=== PATIENT | male | born 1970 | race Caucasian/White ===

== ENCOUNTER → 2018-01-21 14:25 | Outpatient (CLI) | payer MEDICARE, SELFPAY ==
[2018-01-21 15:45] LABS: AST(SGOT) 30 U/L (15-37); Alanine Aminotransfer ALT/SGPT 34 U/L (16-61); Alkaline Phosphatase 36 U/L (45-117); Bilirubin, Direct 0.12 mg/dL (0.00-0.30); Cholesterol 203 mg/dL (200); Globulin 3.8 g/dL (2.2-4.2); High Density Lipoprotein 45 mg/dL; Protein, Total 7.8 g/dL (6.4-8.2); Triglycerides 150 mg/dL; Very Low Density Lipoprotein 30 mg/dL (5-40)
== END ==
PROVIDERS: Family Provider Family Medicine; PCP Family Medicine; Visit Provider Internal Medicine Cardiovascular Disease
DX: E78.5 Hyperlipidemia, unspecified (principal)
CPT/HCPCS: 36415; 80061; 80076

== ENCOUNTER → 2018-01-24 11:02 | Outpatient (CLI) | payer MEDICARE, SELFPAY ==
--- NOTE | 2018-01-24 11:03 | ECHOD_ITS ---
Reason For Study: Congenital heart disease Procedure This was a 2D Doppler, Color Flow transthoracic echocardiogram. Exam performed in department. Left Ventricle Normal LV size. Left ventricular systolic function is normal. The estimated ejection fraction is 60 %. Transmitral doppler flow suggestive of impaired relaxation of left ventricle. No regional wall motion abnormalities noted. Right Ventricle Normal RV size. Normal systolic function. Atria Normal left atrium. Normal right atrium. No doppler evidence for ASD. Mitral Valve There is no mitral annular calcification. Normal mitral valve. Trivial mitral valve insufficiency. Tricuspid Valve Normal tricuspid valve. Trivial tricuspid valve insufficiency. Aortic Valve Bicuspid aortic valve. Mild diffuse aortic valve thickening. Mild (1+) eccentric aortic valve insufficiency. Pulmonic Valve The pulmonic valve is not well visualized. Great Vessels Normal sized aortic root. Pericardium/Pleural No pericardial effusion. MMode/2D Measurements & Calculations LVIDd: 4.4 cm IVSd: 1.2 cm LVOT diam: 2.2 cm LVIDs: 2.9 cm LVPWd: 1.2 cm LVOT area: 3.8 cm2 RVDd: 3.7 cm FS: 34.0 % Ao root diam: 3.7 cm LAV(MOD-bp): 37.3 ml LA A4 area: 13.2 cm2 LAV(MOD-bp) Indexed: 18.1 ml/m2 LAV(MOD-sp2): 44.2 ml LAV(MOD-sp4): 30.5 ml RA A4 area: 8.7 cm2 Doppler Measurements & Calculations MV E max jerry: 81.9 cm/sec Lat Peak E' Jerry: 10.8 cm/sec Med Peak E' Jerry: 9.0 cm/sec MV A max jerry: 98.5 cm/sec E/E' lat: 7.6 E/E' med: 9.1 MV E/A: 0.83 Ao V2 max: 167.4 cm/sec LV V1 max: 108.7 cm/sec PA V2 max: 121.3 cm/sec Ao max P.2 mmHg LV V1 max P.7 mmHg JONATAN(V,D): 2.5 cm2 Interpretation Summary Left ventricular systolic function is normal. The estimated ejection fraction is 60 %. Trivial mitral valve insufficiency. Trivial tricuspid valve insufficiency. Bicuspid aortic valve. Mild diffuse aortic valve thickening. Mild (1+) eccentric aortic valve insufficiency. Transmitral doppler flow suggestive of impaired relaxation of left ventricle Comment / Disclaimer: The offiial transthoracic echocardiogram report was delayed secondary to [facility] Information Systems technical issues. A hand writtern preliminary report was previously made available for review. Ordering Physician: Cj Castellanos Referring Physician: Vishnu Owen MD Performed By: Macie Boston RDCS
== END ==
PROVIDERS: Family Provider Family Medicine; PCP Family Medicine; Visit Provider Internal Medicine Cardiovascular Disease
DX: R07.9 Chest pain, unspecified (principal); I35.1 Nonrheumatic aortic (valve) insufficiency; Q23.1 Congenital insufficiency of aortic valve
CPT/HCPCS: 93306

== ENCOUNTER → 2018-02-04 07:35 | Outpatient (CLI) | payer MEDICARE, SELFPAY ==
--- NOTE | 2018-02-04 16:31 | STRESSREP ---
Stress Test Report Date: 02/04/2018 Procedure: Exercise tolerance test/imaging study Indications: Chest pain Consent: Per the patient Procedure: The patient exercised on a Charles protocol for 9 minutes completing Stage III achieving a peak heart rate of 157 bpm (90 % predicted maximal heart rate) with a peak blood pressure 178/66 mmHg and a peak MET capacity of 10 METs. The baseline ECG demonstrated normal sinus rhythm. The peak exercise ECG demonstrated somatic/motion artifact with no obvious ECG changes. There was a rare PVC during exercise and recovery. The functional capacity was considered good. There was no complaint of chest discomfort during exercise or recovery. The examination was discontinued secondary to dyspnea. Impression: 1. Technically adequate (percent predicted maximal heart rate greater than 85%) exercise tolerance test 2. Peak exercise ECG demonstrated somatic/motion artifact with no obvious ECG changes 3. There was a rare PVC during exercise and recovery. 4. Nuclear images pending Myocardial perfusion imaging study: Technique: The patient was injected with 11.1 mCi of technetium 99m Cardiolite and subsequently rest SPECT Cardiolite nuclear imaging was obtained in the horizontal long, vertical long, and short axis views. The patient exercised on a Charles protocol for 9 minutes completing Stage III achieving a peak heart rate of 157 bpm (90 % predicted maximal heart rate) with a peak blood pressure 178/66 mmHg and a peak MET capacity of 10 METs. The patient was injected with 32.8 mCi of technetium 99m Cardiolite and subsequently stress SPECT Cardiolite nuclear imaging was obtained in the horizontal long, vertical long, and short axis views. A gated Cardiolite study at peak stress was obtained. Interpretation: Rest and stress SPECT Cardiolite nuclear imaging status post realignment, normalization, and attenuation correction, demonstrates the appearance of relative uniform tracer uptake and myocardial perfusion appearing within normal limits. There is end systolic thickening and brightening. The gated Cardiolite study demonstrates myocardial thickening and inward wall motion. The reported LVEF is 58 %. Impression: 1. Rest and stress SPECT Cardiolite nuclear imaging demonstrate relative uniform tracer uptake and myocardial perfusion appearing within normal limits. 2. The gated Cardiolite study reports an LVEF of 58 %. This note was generated with [employer]ation software. It may contain incorrect words, spelling, and punctuation that were not noted in checking the note before signing.
--- NOTE | 2018-02-04 16:37 | STRESSREP_ITS ---
Stress Test Report Date: 02/04/2018 Procedure: Exercise tolerance test/imaging study Indications: Chest pain Consent: Per the patient Procedure: The patient exercised on a Charles protocol for 9 minutes completing Stage III achieving a peak heart rate of 157 bpm (90 % predicted maximal heart rate) with a peak blood pressure 178/66 mmHg and a peak MET capacity of 10 METs. The baseline ECG demonstrated normal sinus rhythm. The peak exercise ECG demonstrated somatic/motion artifact with no obvious ECG changes. There was a rare PVC during exercise and recovery. The functional capacity was considered good. There was no complaint of chest discomfort during exercise or recovery. The examination was discontinued secondary to dyspnea. Impression: 1. Technically adequate (percent predicted maximal heart rate greater than 85% ) exercise tolerance test 2. Peak exercise ECG demonstrated somatic/motion artifact with no obvious ECG changes 3. There was a rare PVC during exercise and recovery. 4. Nuclear images pending Myocardial perfusion imaging study: Technique: The patient was injected with 11.1 mCi of technetium 99m Cardiolite and subsequently rest SPECT Cardiolite nuclear imaging was obtained in the horizontal long, vertical long, and short axis views. The patient exercised on a Charles protocol for 9 minutes completing Stage III achieving a peak heart rate of 157 bpm (90 % predicted maximal heart rate) with a peak blood pressure 178/ 66 mmHg and a peak MET capacity of 10 METs. The patient was injected with 32.8 mCi of technetium 99m Cardiolite and subsequently stress SPECT Cardiolite nuclear imaging was obtained in the horizontal long, vertical long, and short axis views. A gated Cardiolite study at peak stress was obtained. Interpretation: Rest and stress SPECT Cardiolite nuclear imaging status post realignment, normalization, and attenuation correction, demonstrates the appearance of relative uniform tracer uptake and myocardial perfusion appearing within normal limits. There is end systolic thickening and brightening. The gated Cardiolite study demonstrates myocardial thickening and inward wall motion. The reported LVEF is 58 %. Impression: 1. Rest and stress SPECT Cardiolite nuclear imaging demonstrate relative uniform tracer uptake and myocardial perfusion appearing within normal limits. 2. The gated Cardiolite study reports an LVEF of 58 %. This note was generated with [employer] software. It may contain incorrect words, spelling, and punctuation that were not noted in checking the note before signing.
== END ==
PROVIDERS: Family Provider Family Medicine; PCP Family Medicine; Visit Provider Internal Medicine Cardiovascular Disease
DX: R07.9 Chest pain, unspecified (principal)
CPT/HCPCS: 78452; 93017; A9500; A4216

== ENCOUNTER → 2018-03-31 07:22 | Outpatient (CLI) | payer MEDICARE, SELFPAY ==
--- NOTE | 2018-03-31 07:24 | MRI_ITS ---
STUDY: MRI LEFT KNEE REASON FOR EXAM: Medial pain for one year TECHNIQUE: Standardized fat and water weighted pulse sequences were obtained in all 3 orthogonal planes. COMPARISON: Radiographs 05/06/2017. FINDINGS: There is a complex tear of the posterior horn/posterior body of the medial meniscus (proton-density sagittal images 6-14; proton density coronal images 12-14). There is mild arthrosis of the medial femorotibial compartment with mild partial-thickness chondral loss (T2 sagittal image 7). There is subchondral bone edema of the medial tibial plateau (T2 coronal images 9-17), a stress phenomenon. Normal medial collateral ligamentous complex (MCL). Normal distal semimembranosus, gracilis and semitendinosus tendons. Normal lateral meniscus. Normal hyaline cartilage of the lateral femorotibial compartment. There is avascular necrosis of the anterior nonweightbearing aspect of the lateral femoral condyle (T2 coronal images 19-22). Normal proximal tibiofibular articulation. Normal lateral collateral (fibular) ligament. Normal popliteus tendon. Normal biceps femoris tendon. Normal anterior cruciate ligament (ACL). Normal posterior cruciate ligament (PCL). Normal congruent patellofemoral articulation. Normal hyaline cartilage of the patellofemoral compartment. Normal medial and lateral patellar retinaculum. Normal quadriceps tendon. Normal patellar tendon. Normal Hoffa's fat pad. There is a minimal volume of fluid in the knee joint. There is extravasated fluid from a small ruptured popliteal cyst (T2 sagittal images 5-12). There is mild edema in the anterior subcutis adipose space. The otherwise visualized osseous structures are unremarkable. MRI/Lower Ext Joint Only (Routine) IMPRESSION: Medial meniscal tear. Subchondral bone edema of the medial tibial plateau, a stress phenomenon. Mild arthrosis of the medial femorotibial compartment. 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 Extravasated fluid from a small ruptured popliteal cyst. Electronically Signed: Tal Snider MD at 10:00 EDT Tel , Service support ,
== END ==
PROVIDERS: Family Provider Family Medicine; PCP Family Medicine; Visit Provider Orthopaedic Surgery
DX: M23.204 Derangement of unspecified medial meniscus due to old tear or injury, left knee (principal)
CPT/HCPCS: 73721

== ENCOUNTER → 2018-04-21 13:29 | Outpatient (CLI) | payer MEDICARE, SELFPAY ==
[2018-04-21 15:38] LABS: AST(SGOT) 31 U/L (15-37); Alanine Aminotransfer ALT/SGPT 36 U/L (16-61); Albumin, Serum 3.9 g/dL (3.2-5.0); Alkaline Phosphatase 40 U/L (45-117); Bilirubin, Direct 0.15 mg/dL (0.00-0.30); Cholesterol 188 mg/dL (200); Globulin 3.6 g/dL (2.2-4.2); High Density Lipoprotein 39 mg/dL; Protein, Total 7.5 g/dL (6.4-8.2); Triglycerides 210 mg/dL; Very Low Density Lipoprotein 42 mg/dL (5-40)
== END ==
PROVIDERS: Family Provider Family Medicine; PCP Family Medicine; Visit Provider Internal Medicine Cardiovascular Disease
DX: E78.5 Hyperlipidemia, unspecified (principal)
CPT/HCPCS: 36415; 80061; 80076

== ENCOUNTER → 2018-06-10 10:44 | Outpatient (CLI) | payer MEDICARE, SELFPAY ==
--- NOTE | 2018-05-14 11:31 | SUR.PREOP ---
Addendum entered by Yanet Pena 05/14/18 11:50: 1145 Pt left hospital prior to speaking with psychiatric social worker. Pt demographic info given to social work professor. Original Note: Upon entrance to pt room. Pt rocking on side of bed. appears anxious. Pt reported he has not take any of his med since 05/08/18. Pt stated, I figured what's the point. Upon further assessment pt reports he is living in a hotel because his parents asked him to leave home. He has no one to drive him home today. He plans to take a cab. Dr. Apple notified. She spoke with pt. Pt refused for his parents to be telephoned. Notified psychiatric social worker due to pt's current living situation and his symptoms of depression. career services director to come speak with pt. Pt. surgery cancelled.
--- NOTE | 2018-05-14 12:27 | CM.ED ---
Social Work Note Referral from Copywriter for concerns of mental health/ SI. SW went down to and pt had left. Per nursing the pt was stating that he had stopped taking his medications because he didn't know what the point was anymore. Pt did not state plan to harm self or end his life, but this was also not evaluated. Placed call to [facility] and spoke with Loyda Donald and explain that per nursing staff the pt is staying at a hotel, but they do not know which one. His parents had gone to the doctor's office 05/13 to see if he had been in because they had not seen or heard from him. Loyda is looking into if they have had any recent contact with the pt, but recommend that SW file a report with the PD. Placed call to Shanita NAYAK at [phone]. Filed initial report and officer taking call inquired about what pt was wearing or any belongings he had with him. Inform this SW did not see him and would have nursing staff call. He requests as soon as possible for them to dispatch officers. Inform that pt is in a hotel, but we do not know which one or have any contact information for him. Relayed information to nursing staff who will call in to provide description. Plan: Shanita NAYAK safety check. Gwen Cottrell, [employer] STARCH SUPERVISOR, [employer]
== END ==
PROVIDERS: Family Provider Family Medicine; PCP Family Medicine; Visit Provider Orthopaedic Surgery
PROC: (CPT 29870; principal; 2018-05-14 11:55)
DX: Z53.9 Procedure and treatment not carried out, unspecified reason (principal)
CPT/HCPCS: J7120

== ENCOUNTER 2018-07-23 11:08 | Day surgery (SDC) | payer MEDICARE, SELFPAY ==
[2018-07-23] VITALS (7 sets, daily range): BP systolic 125–146; BP diastolic 69–85; PULSE 87–107; RESP 16–18; TEMP 36.2–36.8; O2SAT 92–99; BMI 27.1
[2018-07-23 11:41] LABS: Hematocrit 39.7 % (40-54); Hemoglobin 13.7 g/dl (13.0-16.5); Mean Corp Hgb Conc 34.5 g/gl (32-36); Mean Corpuscular Hgb 30.9 pg (27.0-32.0); Mean Corpuscular Volume 89.6 fL (80-94); Mean Platelet Vol. 9.8 fl (6.2-12.0); Platelet Count 311 K/mm3 (150-450); RBC Distribution Width CV 12.7 % (11.6-14.6); RBC Distribution Width SD 41.1 fl (35.1-43.9); Red Blood Count 4.43 M/mm3 (4.6-6.2); White Blood Count 7.5 K/mm3 (4.4-11.0)
[2018-07-23 11:42] LABS: Partial Thromboplast Time 24.1 Seconds (24.1-36.2)
[2018-07-23 11:45] LABS: Scan Indicated on CBC? Y/N NO
[2018-07-23 11:59] LABS: AST(SGOT) 30 U/L (15-37); Alanine Aminotransfer ALT/SGPT 35 U/L (16-61); Albumin, Serum 4.3 g/dL (3.2-5.0); Alkaline Phosphatase 40 U/L (45-117); Anion Gap 9 (5-15); BUN 23 mg/dL (7-18); BUN/Creat Ratio 17.6 RATIO (10-20); Bilirubin, Direct 0.19 mg/dL (0.00-0.30); Calcium,Total 9.5 mg/dL (8.5-10.1); Chloride 109 mmol/L (98-107); Creatinine, Serum 1.31 mg/dL (0.70-1.30); EST Glomerular Filtration Rate 62 mL/min (>60); Est Glom Filt Rate - Afr Amer 75 mL/min (>60); Estimated Creatinine Clearance 69.71 ml/min; Globulin 3.8 g/dL (2.2-4.2); Glucose 102 mg/dL (74-106); Potassium 3.9 mmol/L (3.5-5.1); Protein, Total 8.1 g/dL (6.4-8.2); Sodium Level 139 mmol/L (136-145)
[2018-07-23] MEDS: Cefazolin 2 GM in 0.9% Normal Saline 100 ML IV (14:41)
--- NOTE | 2018-07-23 15:10 | RAD_ITS ---
STUDY: X-RAY - LEFT KNEE REASON FOR EXAM: Male, 47 years old. Arthroscopy TECHNIQUE: Single view(s) of the knee. COMPARISON: None. FINDINGS: Single image was submitted, as radiology support for c-arm imaging in the operating room. This is not a diagnostic examination. Images for documentation purposes only. Fluoroscopy time if reported: RAD/Knee 1 or 2 Views IMPRESSION: Intraoperative fluoroscopic image guidance. Electronically Signed: Vivian Camacho MD at 3:44 EST , Service support ,
--- NOTE | 2018-07-23 15:43 | PCM.DC.ORTHO ---
Discharge Diet: No Restrictions - nwb left leg for 2 weeks, follow up in 2 weeks, change dressing in 5 days and apply bandaids to incision sites, may bend knee 0-90 degrees, call with concerns Discharge Activity: May Not Drive May shower in (days): 1 Ice area for (Minutes): 20 - Every hour while awake. Weight Bearing Status: Weight bearing as tolerated Keep extremity elevated above heart level: Operative Extremity Call your doctor if your incision/area has: Continuous Slow Oozing, Sudden Increased Bleeding, Increased Pain/ Swelling, Increased Redness, Foul Smelling Discharge Call your doctor if you observe: Fever of 101 or Higher, Coldness, Increased Pain, Numbness or Tingling, Change in Color, Calf discomfort Allergies/Adverse Reactions: Allergies carbamazepine Allergy (Severe, Verified 07/15/18 08:58) Rash lithium [[place]] Allergy (Verified 07/15/18 08:58) Other metoclopramide HCl [From Reglan] Allergy (Verified 07/15/18 08:58) Other metoclopramide Adverse Reaction (Severe, Verified 07/15/18 08:58) Anxiety Medications to take at Discharge finasteride 5 mg tablet 1 mg PO QDAY 01/09/18 Atorvastatin Calcium [Lipitor] 80 mg PO QHS 07/15/18 Citalopram [Celexa] 40 mg PO DAILY 07/15/18 Fenofibrate 200 mg PO DAILY 07/15/18 buPROPion XL [Wellbutrin Xl] 450 mg PO DAILY 07/15/18 Hydrocodone Bitart/Apap 5-325 [[place] 5MG-325MG] 1 - 2 tablet PO Q6H PRN PRN 5 Days #40 tablet 07/23/18 The following prescriptions were given: Hydrocodone Bitart/Apap 5-325 [[place] 5MG-325MG] 1 - 2 tablet PO Q6H PRN PRN 5 Days #40 tablet PRN Reason: Pain Primary Care Physician: Vishnu Owen MD [Primary Care Provider] - Test Results: Test results from this visit will be discussed in further detail at your follow-up appointment, if applicable. Please Follow Up With: Angella Apple, DO - [phone]
--- NOTE | 2018-07-23 15:46 | DCINST_ITS ---
Discharge Diet: No Restrictions - nwb left leg for 2 weeks, follow up in 2 weeks, change dressing in 5 days and apply bandaids to incision sites, may bend knee 0-90 degrees, call with concerns Discharge Activity: May Not Drive May shower in (days): 1 Ice area for (Minutes): 20 - Every hour while awake. Weight Bearing Status: Weight bearing as tolerated Keep extremity elevated above heart level: Operative Extremity Call your doctor if your incision/area has: Continuous Slow Oozing, Sudden Increased Bleeding, Increased Pain/ Swelling, Increased Redness, Foul Smelling Discharge Call your doctor if you observe: Fever of 101 or Higher, Coldness, Increased Pain, Numbness or Tingling, Change in Color, Calf discomfort Allergies/Adverse Reactions: Allergies carbamazepine Allergy (Severe, Verified 07/15/18 08:58) Rash lithium [[place]] Allergy (Verified 07/15/18 08:58) Other metoclopramide HCl [From Reglan] Allergy (Verified 07/15/18 08:58) Other metoclopramide Adverse Reaction (Severe, Verified 07/15/18 08:58) Anxiety Medications to take at Discharge finasteride 5 mg tablet 1 mg PO QDAY 01/09/18 Atorvastatin Calcium [Lipitor] 80 mg PO QHS 07/15/18 Citalopram [Celexa] 40 mg PO DAILY 07/15/18 Fenofibrate 200 mg PO DAILY 07/15/18 buPROPion XL [Wellbutrin Xl] 450 mg PO DAILY 07/15/18 Hydrocodone Bitart/Apap 5-325 [[place] 5MG-325MG] 1 - 2 tablet PO Q6H PRN PRN 5 Days #40 tablet 07/23/18 The following prescriptions were given: Hydrocodone Bitart/Apap 5-325 [[place] 5MG-325MG] 1 - 2 tablet PO Q6H PRN PRN 5 Days #40 tablet PRN Reason: Pain Primary Care Physician: Vishnu Owen MD [Primary Care Provider] - Test Results: Test results from this visit will be discussed in further detail at your follow- up appointment, if applicable. Please Follow Up With: Angella Apple, DO - [phone]
--- NOTE | 2018-07-23 15:48 | OP.PCM_ITS ---
Report of Operation Date of Procedure: 07/23/18 Pre-Operative Diagnosis: left knee medial meniscus tear, synovitis, osteoa rthritis, medial tibial plateau stress phenomenon Post-Operative Diagnosis: same Surgery/Procedure Performed:: salk, pmm, medial tibial plateau microinternal fixation, extensive synovectomy, ltp chondroplasty laboratory animal facility supervisor: Felipe Lemus Type of Anesthesia:: General Anesthesiologist: Vishnu Shafer Estimated Blood Loss (mL): minimal Fluids Replaced: 1000ml lr Description of Procedure: Preoperative note Patient is a 47-year-old male well-known to me in clinic. Patient had an injury to his left knee sustained pain on the inside of the joint and has been having locking and clicking ever since. Patient failed conservative treatment MRI confirms confirms and medial meniscus tear a little bit of thinning of his articular surface of his medial tibial plateau as well as his medial femoral condyle. 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 We discussed all potential treatment options risks and benefits. Risks include but not limited to blood loss, blood clot, infection, neurovascular drink, failure procedure, loss of life and loss level and limb. Because the lateral side the trochlear aspect is asymptomatic we will do the left knee arthroscopy medial meniscectomy synovectomy micro-internal fixation fixation of the medial tibial plateau repair is indicated. Operative note Patient seen and examined preoperative failure. Left knee was marked. Patient was brought to the operating room and placed supine on the operating table. Signing, anesthesia, antibiotics were administered. Left leg was prepped and draped in usual sterile fashion with a tourniquet around his upper thigh. SCD and a constant and ALT was placed on his contralateral limb and all bony problems well-padded. Marked out her incisions for anterior lateral anteromedial portal placement the left leg was then elevated exsanguinated and tourniquet was raised her pressure of 250. Timeout was performed. We then created our anterior lateral portal. We able to then begin our diagnostic arthroscopy. Patellofemoral joint was intact. There is extensive synovitis throughout the joint was actually difficult to get into the joint initially. We then had to do a basically an anterior medial portal on under direct visualization but it was a very difficult visualization because due to all the extensive synovitis. We then inserted a shaver resected back the extensive synovitis that was in the anterior medial anterolateral aspect of the knees for further visualization. We then inserted a probe noted that the patient had a quite unstable medial meniscus tear at the mid body and extending to the anterior body. Please combination of a shaver and a basket to resect back to the meniscus to a stable rim reinserted the probe please note that we did a SWAT portals in order to shave from a better and from the more of the lateral aspect used the lateral aspect of his lateral portal as our working portal to get the anterior aspect of the tear. We then again reprobed and had good stable meniscus remaining. We performed the rest of our synovitis. ACL and PCL within the joint. We also did a lateral tibial plateau had grade 2 fibrillated changes with quite unstable cartilage pieces on the medial aspect of the lateral tibial plateau which were debrided Based on preoperative review of the patient's right knee MRI location of the bone marrow lesion consistent with insufficiency stress fracture in the medial tibial plateau was identified. Preoperative surgical planning allow for determination of the optimal method for assessing the lesion. Intraoperatively, image fluoroscopy combined with bone target instruments from [employer] creations were used to guide surgical instruments into the proximity of the subchondral medial tibial plateau fracture. [employer] knee [employer] acupoint injection cannula was drilled into the subchondral bone. Standard repair methodology was used to treat the subchondral bone defect in the medial tibial plateau. Image fluoroscopy was utilized to confirm accurate insertion of the acupoint injection cannula into the subchondral fracture. After insertion, fracture stabilization was performed by injecting approximately 3 cc of [employer] knee [employer] bone substitute material into the medial tibial plateau. Image fluoroscopy was used to monitor the injection process and ensure injection of t he bone substitute into the subchondral bone so that the bio material flowed into the fracture site to stabilize the fracture and facilitate fracture repair. The incision was irrigated with copious nonsterile saline. We then reinserted the probe into the need to ensure that there is no extravasation of the material into the knee joint which there was not. The wounds were closed with interrupted 4-0 nylon stitches. Sterile dressings were applied tourniquet was inflated for total working time of 25 minutes. Patient tolerated procedure well there were no complications patient was transferred to the recovery room in stable condition. Postoperative note Toe-touch weightbearing left knee for 2 weeks Pharmacy has prescriptions Discussed in detail with family Call with increased pain numbness pain or further issues arise next This note was generated with [employer] software. It may contain incorrect words, spelling, and punctuation that were not noted in checking the note before signing. tt-44 mins
[2018-07-23] MEDS: Mupirocin Ointment 22gm Tube 1 APPLIC (15:49)
[2018-07-23] MEDS: Bupiv/Epi 0.5% Mpf 30 ML Vial (15:49)
--- OUTSIDE RECORDS SUMMARY | 2018-09-17 19:38 | XMS RPT_ITS ---
:1970 Author Organization OHIP Support Name Relationship Address Phone D Unavailable Unavailable Unavailable MONACOMAGDIHA Unavailable [address] + [place] [address] D Unavailable Unavailable Unavailable MAGDI MONACOHA Unavailable [address] + [place] [address] D Unavailable Unavailable Unavailable MONACOMAGDIHA Unavailable [address] + [place] [address] D Unavailable Unavailable Unavailable MONACOMAGDIHA Unavailable [address] + [place] [address] D Unavailable Unavailable Unavailable MONACOMAGDIHA Unavailable [address] + [place] [address] D Unavailable Unavailable Unavailable MAGDI MONACOHA Unavailable [address] + [place] [address] D Unavailable Unavailable Unavailable MONACOMAGIDHA Unavailable [address] + [place] [address] D Unavailable Unavailable Unavailable JACINDAMAGDIHA Unavailable [address] + [place] [address] D Unavailable Unavailable Unavailable MONACOMAGDIHA Unavailable [address] + [place] [address] D Unavailable Unavailable Unavailable MONACOMAGDIHA Unavailable [address] + [place] [address] D Unavailable Unavailable Unavailable MONACOMAGDIHA Unavailable [address] + [place] [address] D Unavailable Unavailable Unavailable MONACOMAGDIHA Unavailable [address] + [place] [address] D Unavailable Unavailable Unavailable JACINDAMAGDIHA Unavailable [address] + [place] [address] D Unavailable Unavailable Unavailable MATTHEW MONACO Unavailable [facility] + [place] [address] D Unavailable Unavailable Unavailable MATTHEW MONACO Unavailable [address] + [place] [address] D Unavailable Unavailable Unavailable MATTHEW MONACO Unavailable [facility] [address] + [place] [address] D Unavailable Unavailable Unavailable MATTHEW MONACO Unavailable [address] + [place] [address] D Unavailable Unavailable Unavailable MATTHEW MONACO Unavailable [facility] [address] + [place] [address] D Unavailable Unavailable Unavailable MATTHEW MONACO Unavailable [facility] [address] + [place] [address] D Unavailable Unavailable Unavailable MATTHEW MONACO Unavailable [facility] [address] + [place] [address] D Unavailable Unavailable Unavailable MATTHEW MONACO Unavailable [facility] [address] + [place] [address] D Unavailable Unavailable Unavailable MATTHEW MONACO Unavailable [facility] [address] + [place] [address] Care Team Providers Name Role Phone Angella Apple Attending Unavailable Owen, Vishnu Referring Unavailable Angella Apple Attending Unavailable Angella Apple Referring Unavailable Owen, Vishnu Primary Care Unavailable Андрей Irving Attending Unavailable Owen, Vishnu Referring Unavailable Owen, Vishnu Primary Care Unavailable Meghan Weeks Attending Unavailable Cj Castellanos Attending Unavailable Owen, Vishnu Referring Unavailable Owen, Vishnu Primary Care Unavailable Angella Apple Attending Unavailable Cj Castellanos Attending Unavailable Cj Castellanos Referring Unavailable Owen, Vishnu Primary Care Unavailable Cj Castellanos Attending Unavailable Cj Castellanos Referring Unavailable Owen, Vishnu Primary Care Unavailable Cj Castellanos Attending Unavailable Cj Castellanos Referring Unavailable Owen, Vishnu Primary Care Unavailable Cj Castellanos Attending Unavailable Angella Apple Attending Unavailable Owen, Vishnu Referring Unavailable Owen, Vishnu Primary Care Unavailable jC Castellanos Attending Unavailable Owen, Vishnu Primary Care Unavailable Referred, Self Attending Unavailable Chicorelli, Angella Attending Unavailable Owen, Vishnu Primary Care Unavailable Chicorelli, Angella Referring Unavailable Chicorelli, Angella Attending Unavailable Owen, Vishnu Referring Unavailable Owen, Vishnu Primary Care Unavailable Moodispapaloma, Cj Attending Unavailable Moodispapaloma, Cj Referring Unavailable Owen, Vishnu Primary Care Unavailable Wayt, Felipe Attending Unavailable Owen, Vishnu Referring Unavailable Owen, Vishnu Primary Care Unavailable Chicorelli, Angella Attending Unavailable Owen, Vishnu Referring Unavailable Chicorelli, Angella Attending Unavailable Chicorelli, Angella Referring Unavailable Owen, Vishnu Primary Care Unavailable Wayt, Felipe Attending Unavailable Owen, Vishnu Referring Unavailable Chicorelli, Angella Attending Unavailable Chicorelli, Angella Referring Unavailable Owen, Vishnu Primary Care Unavailable Wayt, Felipe Attending Unavailable Owen, Vishnu Referring Unavailable PROBLEMS PROBLEMS DATE TYPE CONDITION / CODE ATTENDING STATUS SOURCE 08/11/2018 Unknown S83.242A - Other Chicorelli, Active [place] tear of medial [facility] meniscus, current Hospital injury, left knee, Repository initial encounter / S83.242A(ICD-10) 08/11/2018 Unknown 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, 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 / Hospital M87.052(ICD-10) Repository 08/11/2018 Unknown M65.862 - Other Chicorelli, Active [place] synovitis and [facility] tenosynovitis, left Hospital lower leg / Repository M65.862(ICD-10) 07/23/2018 Unknown G89.18 - Other acute Chicorelli, Active [place] postprocedural pain [facility] / G89.18(ICD-10) Hospital Repository 04/21/2018 Unknown E78.5 - Cj Castellanos Active [place] Hyperlipidemia, Community unspecified / Hospital E78.5(ICD-10) Repository 03/11/2018 Unknown M23.204 - Chicorelli, Active [place] Derangement of [facility] unspecified medial Hospital meniscus due to old Repository tear or injury, left knee / M23.204(ICD-10) 03/12/2018 Unknown R07.9 - Chest pain, Cj Castellanos Active [place] unspecified / Community R07.9(ICD-10) Hospital Repository 02/04/2018 Unknown 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, 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 / Hospital Q23.1(ICD-10) Repository 02/04/2018 Unknown I35.1 - Nonrheumatic MoodispaCj dow aortic (valve) Community insufficiency / Hospital I35.1(ICD-10) Repository 01/09/2018 Unknown M23.90 - Unspecified Андрей Irving internal derangement Community of unspecified knee Hospital / M23.90(ICD-10) Repository 01/09/2018 Unknown M25.562 - Pain in Андрей Irving left knee / Community M25.562(ICD-10) Hospital Repository 01/09/2018 Unknown G89.29 - Other Андрей Irving chronic pain / Community G89.29(ICD-10) Hospital Repository 01/09/2018 Unknown M23.8X2 - Other Андрей rIving internal Community derangements of left Hospital knee / Repository M23.8X2(ICD-10) PROCEDURES PROCEDURES No Procedure Records FoundRESULTS RESULTS INITAL EVALUATION (1) Observed: 08/12/2018 Status: F Source: [place] - PT 11:49 AM [facility] REPOSITORY [facility] [place] [address] Fax REHABILITATION SERVICES INITIAL EVALUATION MR#: [id number] Acct: [id number] Name: RAMÓN MONACO Rep #: [id number] : 1970 47 From: Kristel Pan DPT Referring Dr.: Angella Apple DO Status: REG RCR Insurance: [employer] SELF PAY INSURANCE Patient's Visit Information RAMÓN MONACO is a 47 year old M referred to Physical Therapy by Angella Apple DO with a diagnosis of Left DSA of the knee. Date of Evaluation: 08/12/18 Physical Therapist: Kristel Pan DPT - Visit Plan Frequency: 2x /Week Duration: 3 Weeks Plan: DSA left knee- focus on strength and function - Subjective Findings: Patient reports surgery 3 weeks ago tomorrow. Left knee scope- Fully I before surgery- it was just an irritable issue- insidious onset. Walks the dog but other than that not very active. Went home straight from surgery- no problems getting around his house. Work: does not work. Is not back to running- but he doesn t feel like he can get back to his activities- after 5-10 min on it its sore. Feels unstable and feels like it gives out. Pain is located along the medial and lateral joint line- No radiating pain. Describes the pain as dull and achy and sharp/shooting depending on what he is doing. No N/T in the LE. Sleep: not disturbed. Is back to driving and most of his easier ADL s. Since the surgery he has been on the couch. Before surgery he was just performing ADL s and walking the dog for 30 minutes. Goals: full range of motion and be able to run again. PMHx: none regarding his leg. Meds: no changes since surgery. Goes back to MD in about 3 weeks. - Objective Posture: FH, RS- can correct with VC's but does not maintain. Gait: no deviation noted. Stairs: asc/desc 8 recip with 1 HR- increased UE a for ascend and decreased control with descent. Balance: 5 sec then UE required and able to heel/toe walk forwards and backward x 5 steps with UE A from // bars for balance. HR/TR: able without incidence. Palpation: tender along medial and lateral joint line. Observation: incisions healing well- no s/s of infection. ROm: 0-120 degrees with 'tightness at end range flexion. Strength: Ankle: 5/5, Knee 4+/5, Hip: 4/5 throughout Core: fair. Flex: HS: moderate, Gastroc: mild - Goals Goal 1:: Patient will be I with HEP and progression Goal Time Frame: 4-6 Weeks Goal 2:: Patient will demo 5/5 strength in LE Goal Time Frame: 4-6 Weeks Goal 3:: Patient will return to all normal ADL's and recreational activities Goal Time Frame: 4-6 Weeks Goal 4:: Patient will maintain proper posture t/o tx session to demo increased core s/s Goal Time Frame: 4-6 Weeks Goal 5:: Patient will asc/desc 8' stairs recip with 1 HR and good control Goal Time Frame: 4-6 Weeks - Rehabilitation Potential Physical Therapy Diagnosis: Patient presents with hypomobility- s/p DSA of the left knee- he has decreased painfree ROM, strength and muscular endurance leading to decreased ability to perform ADL's. Rehabilitation Potential: Good - Anticipated Interventions Patient/Client Instruction: Educate patient on: Benefits of Fitness Program Therapeutic Exercise to Include: Strength training, Endurance training, Balance training, Body mechanics, Flexibilty training, Gait and locomotor training, Passive ROM, Active ROM, Dynamic Lumbar Stabilization For the Purpose of:: To improve muscle performance and motor function TENS: Yes Cryotherapy (ice pack, ice massage): Yes Thermo therapy (hot pack): Yes Ultrasound (thermal/non thermal): Yes For the Purpose of:: To decrease pain Thank you for the opportunity to evaluate your patient. For Medicare and Medicare HMO plans, please review the plan of care and approve it. It will need to be FAXED BACK to us at [phone] for Medicare purposes. For Medicare only, by signing this I certify the plan of care. Please let me know if there are questions or concerns regarding this plan of care. Physician Signature: Date: <Electronically signed by Kristel Pan DPT> 08/12/18 1149 CC: Angella Apple DO; Vishnu Owen MD ELR Signed ORTHOPEDIC VISIT Observed: 08/05/2018 Status: F Source: [place] REPORT 2:23 PM [facility] REPOSITORY [facility] [address] [place] [address] OFFICE VISIT Date of Service: 08/05/18 MR#: [id number] Acct: [id number] Name: RAMÓN MONACO Poppy Rep #: [id number] : 1970 Provider: Angella Apple DO Age/Sex: 47/M [place] [facility] [place]: Signed Intake Vital Signs08/05/18 Body Mass Index (BMI) 27.1 Intake Visit Reasons: LEFT KNEE Allergies carbamazepine Allergy (Severe, Verified 07/28/18 13:48) Rash lithium [[place]] Allergy (Verified 07/28/18 13:48) Other metoclopramide HCl [From Reglan] Allergy (Verified 07/28/18 13:48) Other metoclopramide Adverse Reaction (Severe, Verified 07/28/18 13:48) Anxiety Medications finasteride 5 mg tablet 1 mg PO QDAY 01/09/18 [History Confirmed 07/15/18] Atorvastatin Calcium [Lipitor] 80 mg PO QHS 07/15/18 [History Confirmed 07/15/18] Citalopram [Celexa] 40 mg PO DAILY 07/15/18 [History Confirmed 07/23/18] Fenofibrate 200 mg PO DAILY 07/15/18 [History Confirmed 07/15/18] buPROPion XL [Wellbutrin Xl] 450 mg PO DAILY 07/15/18 [History Confirmed 07/15/18] PFSH Medical History Bicuspid aortic valve (Chronic) Nonrheumatic aortic (valve) insufficiency (Chronic) Syncope and collapse (Acute) Hyperlipidemia (Chronic) Hypertriglyceridemia (Chronic) Anxiety (Acute) Depression (Acute) Cabello's sarcoma (Acute) Cottrell-Harrison syndrome (Acute) Surgical History H/O left knee surgery (Acute) History of surgery on upper extremity (Resolved) Family History Father CAD (coronary artery disease) Diabetes Myocardial infarction, Onset Age: 55 Social History Smoking Status: Never smoker alcohol intake: current HPI LEFT KNEE: Details: RAMÓN MONACO is a 47 year old M here today for followup following left knee surgery on 07/23/18. Patient states he is not having any pain, he is not taking any pain meds. He is wearing his brace and using crutches. Ortho Exam Left Knee Date of Surgery: 07/23/18 Skin/Wound: Yes healing Contralateral Normal: Yes Swelling: Yes Homans Sign: No Knee ROM: Yes ROM-Extension -20 to 0, Yes ROM-Flexion 0-140 (100) Examination: No Pain with flexion Quad Atrophy: Yes Assessment AND Plan 1. Orthopedic aftercare Z47.89 Plan Personally reviewed the surgical images if available, the surgery procedure and reviewed the post op care instructions. Monitor for signs of infection, redness, warmth, swelling in excess, drainage, opening of incision site/sites, and/or fever. Instructed to d/c his brace and gave PT script today. Explained that he can begin to return to normal activities gradually. Gave AAOS knee program to begin but no squats yet. Follow up in a month with Thierno or sooner if pain, swelling, numbness or associated symptoms, or concerns develop. All questions answered. Patient in agreement of plan. Coding Level of Care Code Global Post Op Diagnoses Orthopedic aftercare Z47.89 08/05/18 1423 <Electronically signed by Angella Apple DO> Date Angella Apple DO Cosigner Signature: Date (if applicable) CC: OPERATIVE REPORT Observed: 07/30/2018 Status: F Source: [place] 10:22 AM [facility] REPOSITORY [facility] Medical Records Department [address] [place] [address] Operative Report 07/23/18 1546 MR#: [id number] Acct: [id number] Name: RAMÓN MONACO Rep #: [id number] : 1970 47 From: Angella Apple DO PCP: Vishnu Owen MD Status: [facility] Location[place] [facility] [place] Report of Operation Date of Procedure: 07/23/18 Pre-Operative Diagnosis: left knee medial meniscus tear, synovitis, osteoarthritis, medial tibial plateau stress phenomenon Post-Operative Diagnosis: same Surgery/Procedure Performed:: salk, pmm, medial tibial plateau microinternal fixation, extensive synovectomy, ltp chondroplasty bowling alley operator: Felipe Lemus Type of Anesthesia:: General Anesthesiologist: Vishnu Shafer Estimated Blood Loss (mL): minimal Fluids Replaced: 1000ml lr Description of Procedure: Preoperative note Patient is a 47-year-old male well-known to me in clinic. Patient had an injury to his left knee sustained pain on the inside of the joint and has been having locking and clicking ever since. Patient failed conservative treatment MRI confirms confirms and medial meniscus tear a little bit of thinning of his articular surface of his medial tibial plateau as well as his medial femoral condyle. 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 We discussed all potential treatment options risks and benefits. Risks include but not limited to blood loss, blood clot, infection, neurovascular drink, failure procedure, loss of life and loss level and limb. Because the lateral side the trochlear aspect is asymptomatic we will do the left knee arthroscopy medial meniscectomy synovectomy micro-internal fixation fixation of the medial tibial plateau repair is indicated. Operative note Patient seen and examined preoperative failure. Left knee was marked. Patient was brought to the operating room and placed supine on the operating table. Signing, anesthesia, antibiotics were administered. Left leg was prepped and draped in usual sterile fashion with a tourniquet around his upper thigh. SCD and a constant and ALT was placed on his contralateral limb and all bony problems well-padded. Marked out her incisions for anterior lateral anteromedial portal placement the left leg was then elevated exsanguinated and tourniquet was raised her pressure of 250. Timeout was performed. We then created our anterior lateral portal. We able to then begin our diagnostic arthroscopy. Patellofemoral joint was intact. There is extensive synovitis throughout the joint was actually difficult to get into the joint initially. We then had to do a basically an anterior medial portal on under direct visualization but it was a very difficult visualization because due to all the extensive synovitis. We then inserted a shaver resected back the extensive synovitis that was in the anterior medial anterolateral aspect of the knees for further visualization. We then inserted a probe noted that the patient had a quite unstable medial meniscus tear at the mid body and extending to the anterior body. Please combination of a shaver and a basket to resect back to the meniscus to a stable rim reinserted the probe please note that we did a SWAT portals in order to shave from a better and from the more of the lateral aspect used the lateral aspect of his lateral portal as our working portal to get the anterior aspect of the tear. We then again reprobed and had good stable meniscus remaining. We performed the rest of our synovitis. ACL and PCL within the joint. We also did a lateral tibial plateau had grade 2 fibrillated changes with quite unstable cartilage pieces on the medial aspect of the lateral tibial plateau which were debrided Based on preoperative review of the patient's right knee MRI location of the bone marrow lesion consistent with insufficiency stress fracture in the medial tibial plateau was identified. Preoperative surgical planning allow for determination of the optimal method for assessing the lesion. Intraoperatively, image fluoroscopy combined with bone target instruments from [employer] were used to guide surgical instruments into the proximity of the subchondral medial tibial plateau fracture. [employer] acupoint injection cannula was drilled into the subchondral bone. Standard repair methodology was used to treat the subchondral bone defect in the medial tibial plateau. Image fluoroscopy was utilized to confirm accurate insertion of the acupoint injection cannula into the subchondral fracture. After insertion, fracture stabilization was performed by injecting approximately 3 cc of [employer] bone substitute material into the medial tibial plateau. Image fluoroscopy was used to monitor the injection process and ensure injection of the bone substitute into the subchondral bone so that the bio material flowed into the fracture site to stabilize the fracture and facilitate fracture repair. The incision was irrigated with copious nonsterile saline. We then reinserted the probe into the need to ensure that there is no extravasation of the material into the knee joint which there was not. The wounds were closed with interrupted 4-0 nylon stitches. Sterile dressings were applied tourniquet was inflated for total working time of 25 minutes. Patient tolerated procedure well there were no complications patient was transferred to the recovery room in stable condition. Postoperative note Toe-touch weightbearing left knee for 2 weeks Pharmacy has prescriptions Discussed in detail with family Call with increased pain numbness pain or further issues arise next This note was generated with [employer] and [employer] dictation software. It may contain incorrect words, spelling, and punctuation that were not noted in checking the note before signing. [id number] mins 07/30/18 1022 <Electronically signed by Angella Apple DO> Date Angella Apple DO CC: Angella Apple DO; Vishnu Owen MD Signed ORTHOPEDIC VISIT Observed: 07/29/2018 Status: F Source: [place] REPORT 3:54 PM [facility] REPOSITORY [facility] [address] [place] [id number] OFFICE VISIT Date of Service: 07/28/18 MR#: [id number] Acct: [id number] Name: RAMÓN MONACO Rep #: [id number] : 1970 Provider: XU Lemus Age/Sex: 47/M Location: [facility] [place] Status: Signed Intake Intake Visit Reasons: LEFT KNEE Is patient in pain?: Yes Allergies carbamazepine Allergy (Severe, Verified 07/28/18 13:48) Rash lithium [[place]] Allergy (Verified 07/28/18 13:48) Other metoclopramide HCl [From Reglan] Allergy (Verified 07/28/18 13:48) Other metoclopramide Adverse Reaction (Severe, Verified 07/28/18 13:48) Anxiety Medications finasteride 5 mg tablet 1 mg PO QDAY 01/09/18 [History Confirmed 07/15/18] Atorvastatin Calcium [Lipitor] 80 mg PO QHS 07/15/18 [History Confirmed 07/15/18] Citalopram [Celexa] 40 mg PO DAILY 07/15/18 [History Confirmed 07/23/18] Fenofibrate 200 mg PO DAILY 07/15/18 [History Confirmed 07/15/18] buPROPion XL [Wellbutrin Xl] 450 mg PO DAILY 07/15/18 [History Confirmed 07/15/18] PFSH Medical History Bicuspid aortic valve (Chronic) Nonrheumatic aortic (valve) insufficiency (Chronic) Syncope and collapse (Acute) Hyperlipidemia (Chronic) Hypertriglyceridemia (Chronic) Anxiety (Acute) Depression (Acute) Cabello's sarcoma (Acute) Cottrell-Harrison syndrome (Acute) Surgical History H/O left knee surgery (Acute) History of surgery on upper extremity (Resolved) Family History Father CAD (coronary artery disease) Diabetes Myocardial infarction, Onset Age: 55 Social History Smoking Status: Never smoker alcohol intake: current HPI LEFT KNEE: Details: RAMÓN MONACO is a 47 year old M here today for s/p left knee medial tibia microinternal fixation and medial meniscectomy dos 07/23/18. Patient states that he is doing well. He has been taking the norco for pain and has another 4 doses left. Patient has been non-weightbearing and wearing his TROM at all times. He denies any calf pain. Patient has not removed his bandages. Denies numbness, tingling or other associated symptoms. Denies any fevers or chills. ROS Const Reports system reviewed and no additional complaints, except as docu Eyes Reports system reviewed and no additional complaints, except as docu ENT Reports system reviewed and no additional complaints, except as docu Card Reports system reviewed and no additional complaints, except as docu Resp Reports system reviewed and no additional complaints, except as docu GI Reports system reviewed and no additional complaints, except as docu Reports system reviewed and no additional complaints, except as docu Musc Reports joint pain, Reports joint swelling Skin/Breast Reports system reviewed and no additional complaints, except as docu Neuro Yes system reviewed and no additional complaints, except as docu Psych Reports system reviewed and no additional complaints, except as docu Endo Reports system reviewed and no additional complaints, except as docu Ortho Exam Left Knee Contralateral Normal: Yes Swelling: Yes (Minor anterior ) Homans Sign: No Knee ROM: No ROM-Flexion 0-140, No ROM-Extension -20 to 0 Examination: Yes med jt line tenderness, No Lat jt line tenderness, No Pain with flexion, No Jackson's Test Quad Atrophy: No KNEE: At this time patient has some minor anterior swelling of the knee which is expected at this time postoperative. H all is incision sites are clean and dry without any erythema, inflammation, or discharge to indicate infection. He has some ecchymosis noted on the anterior knee as well. He has some minor tenderness on the medial and lateral tibial plateau. Assessment AND Plan Problems 1. Status post meniscectomy Z98.890 2. Orthopedic aftercare Z47.89 Plan This time patient appears to be doing well postoperative. He again has some minor swelling which is expected at this time. No signs of infection of the incision sites. At this time we did show him how to unlock the brace to be able to have 30 degrees of flexion while supported at rest. He is to be locked in full extension though the majority of the times and especially anytime he is up and about. He needs to continue to ice and keep the leg elevated at all times when able. Can continue with anti-inflammatory and/or pain medication as needed. He will follow-up next week for his 2-week postop check. Notify sooner of any Pains, increase in swelling or pain to the knee, redness, discharge from the incisions, or any other concerns or complaints. Plan Detail Follow Up 1 Week Coding Level of Care Code Global Post Op Diagnoses Status post meniscectomy Z98.890 Orthopedic aftercare Z47.89 07/29/18 1554 <Electronically signed by Felipe MCNAIR> Date Felipe MCNAIR Cosigner Signature: Date (if applicable) CC: DISCHARGE INSTRUCTION Observed: 07/23/2018 Status: F Source: [place] 3:46 PM [facility] REPOSITORY [facility] Medical Records Department [address] [place] [id number] Instructions for Home/Discharge Instructions 07/23/18 1543 MR#: [id number] Acct: [id number] Name: RAMÓN MONACO Rep #: [id number] : 1970 47 From: Angella Apple DO PCP: Vishnu Owen MD Status: [facility] [place] Discharge Diet: No Restrictions - nwb left leg for 2 weeks, follow up in 2 weeks, change dressing in 5 days and apply bandaids to incision sites, may bend knee 0-90 degrees, call with concerns Discharge Activity: May Not Drive May shower in (days): 1 Ice area for (Minutes): 20 - Every hour while awake. Weight Bearing Status: Weight bearing as tolerated Keep extremity elevated above heart level: Operative Extremity Call your doctor if your incision/area has: Continuous Slow Oozing, Sudden Increased Bleeding, Increased Pain/ Swelling, Increased Redness, Foul Smelling Discharge Call your doctor if you observe: Fever of 101 or Higher, Coldness, Increased Pain, Numbness or Tingling, Change in Color, Calf discomfort Allergies/Adverse Reactions: Allergies carbamazepine Allergy (Severe, Verified 07/15/18 08:58) Rash lithium [[place]] Allergy (Verified 07/15/18 08:58) Other metoclopramide HCl [From Reglan] Allergy (Verified 07/15/18 08:58) Other metoclopramide Adverse Reaction (Severe, Verified 07/15/18 08:58) Anxiety Medications to take at Discharge finasteride 5 mg tablet 1 mg PO QDAY 01/09/18 Atorvastatin Calcium [Lipitor] 80 mg PO QHS 07/15/18 Citalopram [Celexa] 40 mg PO DAILY 07/15/18 Fenofibrate 200 mg PO DAILY 07/15/18 buPROPion XL [Wellbutrin Xl] 450 mg PO DAILY 07/15/18 Hydrocodone Bitart/Apap 5-325 [[place] 5MG-325MG] 1 - 2 tablet PO Q6H PRN PRN 5 Days #40 tablet 07/23/18 The following prescriptions were given: Hydrocodone Bitart/Apap 5-325 [[place] 5MG-325MG] 1 - 2 tablet PO Q6H PRN PRN 5 Days #40 tablet PRN Reason: Pain Primary Care Physician: Vishnu Owen MD [Primary Care Provider] - Test Results: Test results from this visit will be discussed in further detail at your follow-up appointment, if applicable. Please Follow Up With: Angella Apple DO - [phone] 07/23/18 1546 <Electronically signed by Angella Apple DO> Date Angella Apple DO CC: Vishnu Owen MD PROTHROMBIN TIME W/INR Collected: 07/23/2018 Status: F Source: [place] 11:22 AM [facility] REPOSITORY Order Comment: Reason for Laboratory Test PREOP TYPE CODE TESTS RESULT OUT OF RANGE REFERENCE UNITS LAB L300.4150 11.7-14.9 SECONDS Normal PROTIME 13.0 LAB L300.4200 Normal INR 1.0 Performed By: #### L300.3900, L300.4310 #### [facility] [address] [place], [address] PARTIAL THROMBOPLAST Collected: 07/23/2018 Status: F Source: [place] TIME 11:22 AM [facility] REPOSITORY Order Comment: Reason for Laboratory Test PREOP TYPE CODE TESTS RESULT OUT OF RANGE REFERENCE UNITS LAB L300.4310 24.1-36.2 Seconds Normal PTT 24.1 Performed By: #### L300.3900, L300.4310 #### [facility] [address] [place], [place], [address] CBC-COMPLETE BLOOD CNT Collected: 07/23/2018 Status: F Source: [place] NO DIFF 11:22 AM [facility] REPOSITORY Order Comment: Reason for Laboratory Test PREOP TYPE CODE TESTS RESULT OUT OF RANGE REFERENCE UNITS LAB L100.1000 4.4-11.0 K/mm3 Normal WBC 7.5 LAB L100.1200 4.6-6.2 M/mm3 Low RBC 4.43 LAB L100.1300 13.0-16.5 g/dl Normal HGB 13.7 LAB L100.1400 40-54 % Low HCT 39.7 LAB L100.1500 80-94 fL Normal MCV 89.6 LAB L100.1600 27.0-32.0 pg Normal MCH 30.9 LAB L100.1700 32-36 g/gl Normal MCHC 34.5 LAB L100.1810 11.6-14.6 % Normal RDW CV 12.7 LAB L100.1820 35.1-43.9 fl Normal RDW SD 41.1 LAB L100.1900 150-450 K/mm3 Normal PLT 311 LAB L100.2000 6.2-12.0 fl Normal MPV 9.8 Performed By: #### L100.0500 #### [facility] [address] [facility] [address] [place], [place], [address] BASIC METABOLIC Collected: 07/23/2018 Status: F Source: [place] PROFILE (BMP) 11:22 AM [facility] REPOSITORY Order Comment: Reason for Laboratory Test PREOP TYPE CODE TESTS RESULT OUT OF RANGE REFERENCE UNITS LAB L501.0100 74-106 mg/dL Normal GLU 102 Result Comment: Fasting Glucose result from 100 to 125 mg/dL suggests IMPAIRED HOMEOSTASIS per A.D.A. criteria. Please note revised GLUCOSE reference range effective 2017. LAB L501.1000 7-18 mg/dL High BUN 23 LAB L501.1100 0.70-1.30 mg/dL High CREAT,SERUM 1.31 Result Comment: The validity of the calculated GFR AND GFRAA in patients over 70 years has not been determined. Clinical correlation is essential. LAB L501.1110 >60 mL/min Normal EST GFR 62 Result Comment: Non- GFR Calc LAB L501.1115 >60 mL/min Normal EST GFR - AA 75 Result Comment: GFR Calc LAB L501.1255 ml/min Normal Estimated CRCL 69.71 LAB L501.1300 10-20 RATIO Normal BUN/CRE 17.6 LAB L501.2200 8.5-10 mg/dL Normal .1 CA 9.5 LAB L501.5300 136-14 mmol/L Normal 5 NA 139 LAB L501.5600 3.5-5. mmol/L Normal 1 K 3.9 LAB L501.5900 98-107 mmol/L High CL 109 LAB L501.6100 21.0-3 mmol/L Normal 2.0 CO2 21.0 LAB L501.6200 5-15 Normal GAP 9 Performed By: #### L500.2500, L500.3400 #### [facility] [address] [facility] [place], [place], [id number] LIVER PROFILE Collected: 07/23/2018 Status: F Source: [place] 11:22 AM [facility] REPOSITORY Order Comment: Reason for Laboratory Test PREOP TYPE CODE TESTS RESULT OUT OF RANGE REFERENCE UNITS LAB L501.1500 6.4-8.2 g/dL Normal T PROT 8.1 LAB L501.1800 3.2-5.0 g/dL Normal ALB 4.3 LAB L501.1950 2.2-4.2 g/dL Normal GLOB 3.8 LAB L501.4100 15-37 U/L Normal AST 30 LAB L501.4305 45-117 U/L Low ALK P 40 LAB L501.4405 16-61 U/L Normal ALT 35 LAB L501.4600 0.20-1.00 mg/dL Normal T BILI 0.60 LAB L501.4700 0.00-0.30 mg/dL Normal D BILI 0.19 Performed By: #### L500.2500, L500.3400 #### [facility] [address] [facility] [place], [place], [address] KNEE 1 OR 2 VIEWS Observed: 07/23/2018 Status: F Source: [place] 1:52 AM [facility] REPOSITORY [facility] Imaging Services [address] [place] [address] Knee 1 or 2 Views MR#: [id number] Acct: [id number] Name: RAMÓN MONACO Rep #: [id number] : 1970 M 47 From: Vivian Camacho MD PCP: Vishnu Owen MD Status: [facility] Study: Knee 1 or 2 Views Date of Exam: 07/23/18 Exam# [id number] Ordering Dr: Angella Apple DO STUDY: X-RAY - LEFT KNEE REASON FOR EXAM: Male, 47 years old. Arthroscopy TECHNIQUE: Single view(s) of the knee. COMPARISON: None. FINDINGS: Single image was submitted, as radiology support for c-arm imaging in the operating room. This is not a diagnostic examination. Images for documentation purposes only. Fluoroscopy time if reported: RAD/Knee 1 or 2 Views IMPRESSION: Intraoperative fluoroscopic image guidance. Electronically Signed: Vivian Camacho MD at 3:44 EST , Service support , CC: Angella Apple DO; Vishnu Owen MD Block Mason: Signed ORTHOPEDIC VISIT Observed: 07/10/2018 Status: F Source: [place] REPORT 12:32 PM [facility] REPOSITORY [facility] Orthopaedics AND Sports Medicine [facility] [facility] [address] [place] [address] OFFICE VISIT Date of Service: 07/07/18 MR#: [id number] Acct: [id number] Name: RAMÓN MONACO Rep #: [id number] : 1970 Provider: XU Lemus Age/Sex: 47/M Location: [facility] [place] [place] Status: Signed Intake Intake Visit Reasons: LEFT KNEE Is patient in pain?: Yes Allergies carbamazepine Allergy (Severe, Verified 07/07/18 13:39) Rash lithium [[place]] Allergy (Verified 07/07/18 13:39) Other metoclopramide HCl [From Reglan] Allergy (Verified 07/07/18 13:39) Other metoclopramide Adverse Reaction (Severe, Verified 07/07/18 13:39) Anxiety Medications finasteride 5 mg tablet 1.25 mg PO QDAY 01/09/18 [History Confirmed 06/03/18] glycopyrrolate 1 mg tablet 1 mg PO BID-TID PRN 04/17/18 [History Confirmed 05/14/18] PFSH Medical History Bicuspid aortic valve (Chronic) Nonrheumatic aortic (valve) insufficiency (Chronic) Syncope and collapse (Acute) Hyperlipidemia (Chronic) Hypertriglyceridemia (Chronic) Anxiety (Acute) Depression (Acute) Cabello's sarcoma (Acute) Cottrell-Harrison syndrome (Acute) Surgical History History of surgery on upper extremity (Resolved) Family History Father CAD (coronary artery disease) Diabetes Myocardial infarction, Onset Age: 55 Social History Smoking Status: Never smoker alcohol intake: current HPI LEFT KNEE: Details: RAMÓN MONACO is a 47 year old M here today with his mother for a followup on his left knee. He states that his knee pain has improved slightly but he is not doing many activities at this time. He has increased pain with ambulation. Patient notes that his pain is over his anterior knee. He has popping and clicking at times. Patient would like to proceed with surgery at this time. ROS Const Reports system reviewed and no additional complaints, except as docu Eyes Reports system reviewed and no additional complaints, except as docu ENT Reports system reviewed and no additional complaints, except as docu Card Reports system reviewed and no additional complaints, except as docu Resp Reports system reviewed and no additional complaints, except as docu GI Reports system reviewed and no additional complaints, except as docu Reports system reviewed and no additional complaints, except as docu Musc Reports joint pain Skin/Breast Reports system reviewed and no additional complaints, except as docu Neuro Yes system reviewed and no additional complaints, except as docu Psych Reports system reviewed and no additional complaints, except as docu Endo Reports system reviewed and no additional complaints, except as docu Ortho Exam Left Knee Contralateral Normal: Yes Swelling: No Homans Sign: No Knee ROM: Yes ROM-Extension -20 to 0, Yes ROM-Flexion 0-140 Examination: Yes med jt line tenderness, Yes Lat jt line tenderness Quad Atrophy: No Patella Grind: No Assessment AND Plan Problems 1. Tear of medial meniscus of left knee, current, unspecified tear type, subsequent encounter S83.242D 2. Avascular necrosis of left femur M87.052 3. Bone marrow edema D75.89 Plan Patient is here today to discuss proceeding with surgery to the left knee to fix the meniscus as well as addressed the avascular necrosis. We had several discussions in the past regarding risks and benefits of surgery which patient at this time patient is well aware and understands those risks. We have answered many questions for him regarding the procedure thus far at the same time we did provide him with some other answers to questions that he had today as well. His mother was in the office today with him. We did discuss operative protocol today which included preanesthesia testing, surgical scheduling times, as well as presurgical antiseptic wash. They are aware they will see preanesthesia testing via phone and will likely have blood work the day of surgery. We did discuss the blood work which will include an alcohol level due to patient's history of alcohol abuse. We discussed that this level is just to make sure there is no level of impairment when he does consent for surgery the day of. Patient as well as his mother understand this being drawn. He does state that he is not been drinking alcohol at all for the past 1-2 weeks. Patient is to use antiseptic wash the night before surgery as well as the morning washing from the groin down to the toes. He is to be n.p.o. after midnight the night before surgery. Surgical department will call him the day before with time of his surgery. If they have any other questions in the meantime please feel free to call the office. Otherwise we will see him the day of surgery. Coding Level of Care Code Off vis,est,level 2 Diagnoses Tear of medial meniscus of left knee, current, unspecified tear type, subsequent encounter S83.242D Encounter type: subsequent encounter Meniscus tear of knee type: unspecified type Avascular necrosis of left femur M87.052 Laterality: left Bone marrow edema D75.89 07/10/18 1232 <Electronically signed by Felipe MCNAIR> Date Felipe Qureshi Signature: Date (if applicable) CC: ORTHOPEDIC VISIT Observed: 06/03/2018 Status: F Source: [place] REPORT 5:11 PM [facility] REPOSITORY [facility] Orthopaedics AND Sports Medicine [address] [place] [address] OFFICE VISIT Date of Service: 06/03/18 MR#: [id number] Acct: [id number] Name: RAMÓN MONACO Rep #: [id number] : 1970 Provider: Angella Apple DO Age/Sex: 47/M Location: [facility] [place] [place] Status: Signed Intake Intake Visit Reasons: LEFT KNEE Is patient in pain?: Yes Allergies carbamazepine Allergy (Severe, Verified 06/03/18 09:56) Rash lithium [[place]] Allergy (Verified 06/03/18 09:56) Other metoclopramide HCl [From Reglan] Allergy (Verified 06/03/18 09:56) Other metoclopramide Adverse Reaction (Severe, Verified 06/03/18 09:56) Anxiety Medications finasteride 5 mg tablet 1.25 mg PO QDAY 01/09/18 [History Confirmed 06/03/18] glycopyrrolate 1 mg tablet 1 mg PO BID-TID PRN 04/17/18 [History Confirmed 05/14/18] PFSH Medical History Bicuspid aortic valve (Chronic) Nonrheumatic aortic (valve) insufficiency (Chronic) Syncope and collapse (Acute) Hyperlipidemia (Chronic) Hypertriglyceridemia (Chronic) Anxiety (Acute) Depression (Acute) Cabello's sarcoma (Acute) Cottrell-Harrison syndrome (Acute) Surgical History History of surgery on upper extremity (Resolved) Family History Father CAD (coronary artery disease) Diabetes Myocardial infarction, Onset Age: 55 Social History Smoking Status: Never smoker alcohol intake: current HPI LEFT KNEE: Details: RAMÓN MONACO is a 47 year old M here today for continued left knee pain. Patient notes that he has pain over his entire anterior knee and medial knee. Patient notes that he has popping and clicking. He has swelling. Patient notes that he has increased pain with ambulation and stairs. Patient was signed up for surgery but did not have anyone to care for him following surgery. He knows that he would have transportation. ROS Const Reports system reviewed and no additional complaints, except as docu Eyes Reports system reviewed and no additional complaints, except as docu ENT Reports system reviewed and no additional complaints, except as docu Card Reports system reviewed and no additional complaints, except as docu Resp Reports system reviewed and no additional complaints, except as docu GI Reports system reviewed and no additional complaints, except as docu Reports system reviewed and no additional complaints, except as docu Musc Reports joint pain, Reports joint swelling Skin/Breast Reports system reviewed and no additional complaints, except as docu Neuro Yes system reviewed and no additional complaints, except as docu Psych Reports system reviewed and no additional complaints, except as docu Endo Reports system reviewed and no additional complaints, except as docu Assessment AND Plan 1. Degenerative tear of left medial meniscus M23.204 Plan My concern is the patient has been off all meds and the sequela associated with this. Because of this , patient is to see Dr. Owen prior to surgery to ensure that Dr. Owen is aware was going on with both the fact that he is not taking any other meds and the fact that he might have a change in where he is staying and what is going on from social perspective. After Dr. Owen to evaluate patient I will ensure that he is comfortable with him going on with surgery, and this was discussed with patient as well. This note was generated with [employer] and [employer] dictation software. It may contain incorrect words, spelling, and punctuation that were not noted in checking the note before signing. Reviewed the discussion about observation post op, the need to have help with getting to and from the hospital. Encouraged him not to drink any alcohol or cut significantly starting now through surgery date. He will need someone to pick him up the day after his surgery. Instructed to see his PCP prior to surgery since patient has ceased all medications and we will need his clearance prior to surgery. Answered patients questions regarding his medications and the importance of caring for his overall health. Reviewed the pre-operative plans with the patient. Risks and benefits of the procedure were fully explained, including but not limited to infection, neurovascular injury, continued pain, arthritis, stiffness, need for further surgery, re-injury, DVT, PE, general risks of anesthesia, and loss of limb or life. The patient understands all the risks and does wish to proceed with written consent. Follow up post op or sooner if pain, swelling, numbness or associated symptoms, or concerns develop. All questions answered. Patient in agreement of plan. 2. Chondromalacia, left knee M94.262 Coding Level of Care Code Off vis,est,level 2 Diagnoses Degenerative tear of left medial meniscus M23.204 Chondromalacia, left knee M94.262 06/03/18 1711 <Electronically signed by Angella Apple DO> Date Angella Apple DO Cosigner Signature: Date (if applicable) CC: Vishnu Owen MD ORTHOPEDIC VISIT Observed: 04/24/2018 Status: F Source: [place] REPORT 12:44 PM [facility] REPOSITORY [facility] Orthopaedics AND Sports Medicine [address] [place] [address] OFFICE VISIT Date of Service: 04/24/18 MR#: [id number] Acct: [id number] Name: RAMÓN MONACO Rep #: [id number] : 1970 Provider: XU Lemus Age/Sex: 47/M [place] [facility] [place] Status: Signed Intake Intake Visit Reasons: 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 Required: No Accompanied by: Parents Is patient in pain?: Yes (left knee) Pain scale (1-10): 2 Allergies carbamazepine Allergy (Severe, Verified 04/17/18 08:25) Rash lithium [[place]] Allergy (Verified 04/17/18 08:25) Other metoclopramide HCl [From Reglan] Allergy (Verified 04/17/18 08:25) Other metoclopramide Adverse Reaction (Severe, Verified 04/17/18 08:25) Anxiety Medications Clonazepam [Klonopin] 0.5 mg PO 4X/DAY PRN PRN 10/29/13 [History Confirmed 03/11/18] Bupropion HCl [Wellbutrin Xl] 450 mg PO DAILY 01/20/17 [History Confirmed 03/11/18] Dextroamphetamine/Amphetamine [Adderall Xr 20 mg Capsule] 40 mg PO DAILY 01/20/17 [History Confirmed 03/11/18] fenofibrate micronized 200 mg capsule 200 mg PO QDAY #30 cap 08/02/17 [Rx Confirmed 03/11/18] cholecalciferol (vitamin D3) 400 unit capsule 400 unit PO QDAY 01/09/18 [History Confirmed 03/11/18] finasteride 5 mg tablet 5 mg PO QDAY 01/09/18 [History Confirmed 03/11/18] citalopram 20 mg tablet 40 mg PO DAILY tab 01/13/18 [History Confirmed 03/11/18] atorvastatin 80 mg tablet 80 mg PO QDAY #90 tab 04/03/18 [Rx] glycopyrrolate 1 mg tablet 1 mg PO BID-TID PRN 04/17/18 [History Confirmed 04/17/18] PFSH Medical History Bicuspid aortic valve (Chronic) Nonrheumatic aortic (valve) insufficiency (Chronic) Syncope and collapse (Acute) Hyperlipidemia (Chronic) Hypertriglyceridemia (Chronic) Anxiety (Acute) Depression (Acute) Cabello's sarcoma (Acute) Cottrell-Harrison syndrome (Acute) Surgical History History of surgery on upper extremity (Resolved) Family History Father CAD (coronary artery disease) Diabetes Myocardial infarction, Onset Age: 55 Social History Smoking Status: Never smoker alcohol intake: current HPI LEFT KNEE: Details: RAMÓN MONACO is a 47 year old M here today for left knee pain. Patient states he sometimes has knee pain that is an 8/10 and feels like it is going to buckle. Patient states today his pain is 2/10 that he describes as an ache. Denies numbness, tingling, popping, or clicking. Patient had xrays last year and mri done 03-31-18. Patient is here today to discuss surgery options. Ortho Exam Left Knee Contralateral Normal: Yes Swelling: No Homans Sign: No Knee ROM: Yes ROM-Extension -20 to 0, Yes ROM-Flexion 0-140 Examination: Yes med jt line tenderness, Yes Lat jt line tenderness, No TTP inf pole patella, Yes Jackson's Test Quad Atrophy: No Popliteal Adenopathy: No Assessment AND Plan Problems 1. 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 Bone marrow edema D75.89 3. Tear of medial meniscus of left knee, current, unspecified tear type, subsequent encounter S83.242D 4. Avascular necrosis of left femur M87.052 Plan We went over anatomy and physiology as well as the pathophysiology of his injuries in the knee. Patients parents were here today and had questions which we discussed and answered. After questions were answered and patient and parents understood all that was discussed, patient would like to proceed with surgery at this time. Risks and benefits of surgery were discussed and consent form was signed. They can notify the office with concerns or questions in the mean time. Patient will be contacted regarding surgical approval and then from surgery dept regarding pre-anasthesia and surgical times. 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 Bone marrow edema D75.89 Tear of medial meniscus of left knee, current, unspecified tear type, subsequent encounter S83.242D Encounter type: subsequent encounter Meniscus tear of knee type: unspecified type Avascular necrosis of left femur M87.052 Laterality: left Time Spent (min) 30 04/24/18 1244 <Electronically signed by Felipe MCNAIR> Date Felipe MCNAIR Cosigner Signature: Date (if applicable) CC: LIVER PROFILE Collected: 04/21/2018 Status: F Source: [place] 1:33 PM [facility] REPOSITORY TYPE CODE TESTS RESULT OUT OF RANGE REFERENCE UNITS LAB L501.1500 6.4-8.2 g/dL Normal T PROT 7.5 LAB L501.1800 3.2-5.0 g/dL Normal ALB 3.9 LAB L501.1950 2.2-4.2 g/dL Normal GLOB 3.6 LAB L501.4100 15-37 U/L Normal AST 31 LAB L501.4305 45-117 U/L Low ALK P 40 LAB L501.4405 16-61 U/L Normal ALT 36 LAB L501.4600 0.20-1.00 mg/dL Normal T BILI 0.60 LAB L501.4700 0.00-0.30 mg/dL Normal D BILI 0.15 Performed By: #### L500.3400, L500.4100 #### [facility] [address] [place], [place], [address] LIPID PROFILE Collected: 04/21/2018 Status: F Source: [place] 1:33 PM [facility] REPOSITORY TYPE CODE TESTS RESULT OUT OF RANGE REFERENCE UNITS LAB L501.4900 200 mg/dL Normal CHOL 188 Result Comment: <200 mg/dL Desirable 200-240 mg/dL Borderline >240 mg/dL High Risk LAB L501.5000 mg/dL High TRIG 210 Result Comment: The drugs N-Acetylcysteine and Metamizole may falsely depress this assay. Serum Triglycerides Reference Interval Normal <150 mg/dL Borderline high 150 - 199 mg/dL High 200 - 499 mg/dL Very High > or = 500 mg/dL LAB L501.6400 mg/dL Low HDL 39 Result Comment: The drugs N-Acetylcysteine and Metamizole may falsely depress this assay. Reference Range HDL <40 mg/dL Low HDL Cholesterol HDL >or= 60 mg/dL High HDL Cholesterol LAB L501.6500 0-130 mg/dL Normal LDL 107 LAB L501.6600 5-40 mg/dL High VLDL 42 Performed By: #### L500.3400, L500.4100 #### [facility] [address] [place], [place], [address] ORTHOPEDIC VISIT Observed: 04/17/2018 Status: F Source: [place]AN[place] REPORT 10:11 AM [facility] REPOSITORY [facility] [address] [place] [id number] OFFICE VISIT Date of Service: 04/17/18 MR#: [id number] Acct: [id number] Name: RAMÓN MONACO Rep #: [id number] : 1970 Provider: Angella Apple DO Age/Sex: 47/M Location: [facility] [place].[facility] Status: Signed Intake Intake Visit Reasons: LEFT KNEE Is patient in pain?: Yes Allergies carbamazepine Allergy (Severe, Verified 04/17/18 08:25) Rash lithium [[place]] Allergy (Verified 04/17/18 08:25) Other metoclopramide HCl [From Reglan] Allergy (Verified 04/17/18 08:25) Other metoclopramide Adverse Reaction (Severe, Verified 04/17/18 08:25) Anxiety Medications Clonazepam [Klonopin] 0.5 mg PO 4X/DAY PRN PRN 10/29/13 [History Confirmed 03/11/18] Bupropion HCl [Wellbutrin Xl] 450 mg PO DAILY 01/20/17 [History Confirmed 03/11/18] Dextroamphetamine/Amphetamine [Adderall Xr 20 mg Capsule] 40 mg PO DAILY 01/20/17 [History Confirmed 03/11/18] fenofibrate micronized 200 mg capsule 200 mg PO QDAY #30 cap 08/02/17 [Rx Confirmed 03/11/18] cholecalciferol (vitamin D3) 400 unit capsule 400 unit PO QDAY 01/09/18 [History Confirmed 03/11/18] finasteride 5 mg tablet 5 mg PO QDAY 01/09/18 [History Confirmed 03/11/18] citalopram 20 mg tablet 40 mg PO DAILY tab 01/13/18 [History Confirmed 03/11/18] atorvastatin 80 mg tablet 80 mg PO QDAY #90 tab 04/03/18 [Rx] glycopyrrolate 1 mg tablet 1 mg PO BID-TID PRN 04/17/18 [History Confirmed 04/17/18] PFSH Medical History Bicuspid aortic valve (Chronic) Nonrheumatic aortic (valve) insufficiency (Chronic) Syncope and collapse (Acute) Hyperlipidemia (Chronic) Hypertriglyceridemia (Chronic) Anxiety (Acute) Depression (Acute) Cabello's sarcoma (Acute) Cottrell-Harrison syndrome (Acute) Surgical History History of surgery on upper extremity (Resolved) Family History Father CAD (coronary artery disease) Diabetes Myocardial infarction, Onset Age: 55 Social History Smoking Status: Never smoker alcohol intake: current HPI LEFT KNEE: Details: RAMÓN MONACO is a 47 year old M here today for a followup on his left knee. Patient notes that he has pain over his medial knee. He denies any popping or clicking. Patient denies any swelling. Patient has pain with ambulation. He had an MRI which is here for review. ROS Const Reports system reviewed and no additional complaints, except as docu Eyes Reports system reviewed and no additional complaints, except as docu ENT Reports system reviewed and no additional complaints, except as docu Card Reports system reviewed and no additional complaints, except as docu Resp Reports system reviewed and no additional complaints, except as docu GI Reports system reviewed and no additional complaints, except as docu Reports system reviewed and no additional complaints, except as docu Skin/Breast Reports system reviewed and no additional complaints, except as docu Neuro Yes system reviewed and no additional complaints, except as docu Psych Reports system reviewed and no additional complaints, except as docu Endo Reports system reviewed and no additional complaints, except as docu Assessment AND Plan Plan Personally reviewed the MRI and explained that he has AVN, decreased blood flow to the lateral femoral condyle and medial meniscus tear with subchondral edema of the medial tibial condyle. Educated on the importance of keeping the cartilage intact for overall health of the knee. Reviewed the surgical option of repair, he could also do a lateral alley cleaner brace for conservative care but may make the medial pain increase. He could wait a few months for treatment as well, if its over 3 months we would repeat the MRI to check for changes. Will discuss his options with his family and decide on surgery. He can have a meniscus debridement, subchondralplasty or curettage of the AVN. Follow up when ready to proceed with surgery or sooner if pain, swelling, numbness or associated symptoms, or concerns develop. All questions answered. Patient in agreement of plan. Coding Level of Care Code Off vis,est,level 4 04/17/18 1011 <Electronically signed by Angella Apple DO> Date Angella Apple DO Cosigner Signature: Date (if applicable) CC: LOWER EXT JOINT ONLY Observed: 03/31/2018 Status: F Source: SHANITA (ROUTINE) 7:24 AM [facility] REPOSITORY [facility] Imaging Services [address] [place] [address] Lower Ext Joint Only (Routine) MR#: [id number] Acct: [id number] Name: RAMÓN MONACO Rep #: [id number] : 1970 M 47 From: Tal Snider MD PCP: Vishnu Owen MD Status: REG CLI Study: Lower Ext Joint Only (Routine) Date of Exam: 03/31/18 Exam# [id number] Ordering Dr: Angella Apple DO STUDY: MRI LEFT KNEE REASON FOR EXAM: Medial pain for one year TECHNIQUE: Standardized fat and water weighted pulse sequences were obtained in all 3 orthogonal planes. COMPARISON: Radiographs 05/06/2017. FINDINGS: There is a complex tear of the posterior horn/posterior body of the medial meniscus (proton-density sagittal images 6-14; proton density coronal images 12-14). There is mild arthrosis of the medial femorotibial compartment with mild partial-thickness chondral loss (T2 sagittal image 7). There is subchondral bone edema of the medial tibial plateau (T2 coronal images 9-17), a stress phenomenon. Normal medial collateral ligamentous complex (MCL). Normal distal semimembranosus, gracilis and semitendinosus tendons. Normal lateral meniscus. Normal hyaline cartilage of the lateral femorotibial compartment. There is avascular necrosis of the anterior nonweightbearing aspect of the lateral femoral condyle (T2 coronal images 19-22). Normal proximal tibiofibular articulation. Normal lateral collateral (fibular) ligament. Normal popliteus tendon. Normal biceps femoris tendon. Normal anterior cruciate ligament (ACL). Normal posterior cruciate ligament (PCL). Normal congruent patellofemoral articulation. Normal hyaline cartilage of the patellofemoral compartment. Normal medial and lateral patellar retinaculum. Normal quadriceps tendon. Normal patellar tendon. Normal Hoffa's fat pad. There is a minimal volume of fluid in the knee joint. There is extravasated fluid from a small ruptured popliteal cyst (T2 sagittal images 5-12). There is mild edema in the anterior subcutis adipose space. The otherwise visualized osseous structures are unremarkable. MRI/Lower Ext Joint Only (Routine) IMPRESSION: Medial meniscal tear. Subchondral bone edema of the medial tibial plateau, a stress phenomenon. Mild arthrosis of the medial femorotibial compartment. 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 Extravasated fluid from a small ruptured popliteal cyst. Electronically Signed: Tal Snider MD at 10:00 EDT Tel , Service support , CC: Angella Apple DO; Vishnu Owen MD Block Mason: Signed ORTHOPEDIC VISIT Observed: 03/11/2018 Status: F Source: [place] REPORT 3:02 PM [facility] REPOSITORY [facility] Orthopaedics AND Sports Medicine [address] [place] [address] OFFICE VISIT Date of Service: 03/11/18 MR#: [id number] Acct: [id number] Name: RAMÓN MONACO Rep #: [id number] : 1970 Provider: Angella Apple DO Age/Sex: 47/M Location: [facility] [place] [place] Status: Signed Intake Intake Visit Reasons: LEFT KNEE PAIN Is patient in pain?: Yes Pain scale (1-10): 7 Allergies carbamazepine Allergy (Severe, Verified 03/11/18 13:11) Rash lithium [[place]] Allergy (Verified 03/11/18 13:11) Other metoclopramide HCl [From Reglan] Allergy (Verified 03/11/18 13:11) Other metoclopramide Adverse Reaction (Severe, Verified 03/11/18 13:11) Anxiety Medications Clonazepam [Klonopin] 0.5 mg PO 4X/DAY PRN PRN 10/29/13 [History Confirmed 03/11/18] Bupropion HCl [Wellbutrin Xl] 450 mg PO DAILY 01/20/17 [History Confirmed 03/11/18] Dextroamphetamine/Amphetamine [Adderall Xr 20 mg Capsule] 40 mg PO DAILY 01/20/17 [History Confirmed 03/11/18] fenofibrate micronized 200 mg capsule 200 mg PO QDAY #30 cap 08/02/17 [Rx Confirmed 03/11/18] cholecalciferol (vitamin D3) 400 unit capsule 400 unit PO QDAY 01/09/18 [History Confirmed 03/11/18] finasteride 5 mg tablet 5 mg PO QDAY 01/09/18 [History Confirmed 03/11/18] citalopram 20 mg tablet 40 mg PO DAILY tab 01/13/18 [History Confirmed 03/11/18] atorvastatin 40 mg tablet 80 mg PO QDAY #30 tab 02/27/18 [Rx Confirmed 03/11/18] PFSH Medical History Bicuspid aortic valve (Chronic) Nonrheumatic aortic (valve) insufficiency (Chronic) Syncope and collapse (Acute) Hyperlipidemia (Chronic) Hypertriglyceridemia (Chronic) Anxiety (Acute) Depression (Acute) Cabello's sarcoma (Acute) Cottrell-Harrison syndrome (Acute) Surgical History History of surgery on upper extremity (Resolved) Family History Father CAD (coronary artery disease) Diabetes Myocardial infarction, Onset Age: 55 Social History Smoking Status: Never smoker alcohol intake: current HPI LEFT KNEE PAIN: Details: RAMÓN MONACO is a 47 year old M here today for left knee. Patient complains of worsening left knee pain. He states that he has pain over his medial knee and anterior knee. He fell about a month ago and has had patellar grinding since his fall. Patient is ambulating with an antalgic gait. Patient had an injection on 09/23/17 was helpful for a few months. Patient has medial joint line instability. He denies any swelling. Patient denies any MRI. He denies any physical therapy or HEP. He denies any bracing. Patient had xrays which are here for review. ROS Const Reports system reviewed and no additional complaints, except as docu Eyes Reports system reviewed and no additional complaints, except as docu ENT Reports system reviewed and no additional complaints, except as docu Card Reports system reviewed and no additional complaints, except as docu Resp Reports system reviewed and no additional complaints, except as docu GI Reports system reviewed and no additional complaints, except as docu Reports system reviewed and no additional complaints, except as docu Musc Reports joint pain, Reports muscle weakness Skin/Breast Reports system reviewed and no additional complaints, except as docu Neuro Yes system reviewed and no additional complaints, except as docu Psych Reports system reviewed and no additional complaints, except as docu Endo Reports system reviewed and no additional complaints, except as docu Ortho Exam Left Knee Skin/Wound: Yes CDI Contralateral Normal: Yes Swelling: No Homans Sign: No Knee ROM: Yes ROM-Extension -20 to 0, Yes ROM-Flexion 0-140 (120) Examination: Yes Pain with flexion, Yes med jt line tenderness, Yes Jackson's Test, Yes Crepitus Assessment AND Plan 1. Degenerative tear of left medial meniscus M23.204 Plan Re-reviewed the xray and explained that he has had relief with injections but with the new onset of instability as well as pain we will order an MRI to eval the meniscus. Will discuss treatment options after MRI, this will also allow for eval of possible loose body due to the grinding sensation under the patella Follow up after MRI or sooner if pain, swelling, numbness or associated symptoms, or concerns develop. All questions answered. Patient in agreement of plan. Orders Orders: 2. Chondromalacia, left knee M94.262 Coding Level of Care Code Off vis,est,level 3 Diagnoses Degenerative tear of left medial meniscus M23.204 Chondromalacia, left knee M94.262 03/11/18 1502 <Electronically signed by Agnella Apple DO> Date Angella Apple DO Cosigner Signature: Date (if applicable) CC: ECHOCARDIOGRAM COMPLETE Observed: 02/10/2018 Status: F Source: [place]ANITA 3:28 PM [facility] REPOSITORY [facility] Cardiovascular Services [facility] [place] [place] [address] Echo Complete 01/24/18 1114 MR#: [id number] Acct: [id number] Name: RAMÓN MONACO Rep #: [id number] : 1970 47 From: Cj Castellanos MD Attending Dr: Cj Castellanos MD Status: REG CLI Ordering Dr: Cj Castellanos MD Date: 01/24/18 Location: [facility] Sex: M C Admitted: Reason For Study: Congenital heart disease Procedure This was a 2D Doppler, Color Flow transthoracic echocardiogram. Exam performed in department. Left Ventricle Normal LV size. Left ventricular systolic function is normal. The estimated ejection fraction is 60 %. Transmitral doppler flow suggestive of impaired relaxation of left ventricle. No regional wall motion abnormalities noted. Right Ventricle Normal RV size. Normal systolic function. Atria Normal left atrium. Normal right atrium. No doppler evidence for ASD. Mitral Valve There is no mitral annular calcification. Normal mitral valve. Trivial mitral valve insufficiency. Tricuspid Valve Normal tricuspid valve. Trivial tricuspid valve insufficiency. Aortic Valve Bicuspid aortic valve. Mild diffuse aortic valve thickening. Mild (1+) eccentric aortic valve insufficiency. Pulmonic Valve The pulmonic valve is not well visualized. Great Vessels Normal sized aortic root. Pericardium/Pleural No pericardial effusion. MMode/2D Measurements AND Calculations LVIDd: 4.4 cm IVSd: 1.2 cm LVOT diam: 2.2 cm LVIDs: 2.9 cm LVPWd: 1.2 cm LVOT area: 3.8 cm2 RVDd: 3.7 cm FS: 34.0 % Ao root diam: 3.7 cm LAV(MOD-bp): 37.3 ml LA A4 area: 13.2 cm2 LAV(MOD-bp) Indexed: 18.1 ml/m2 LAV(MOD-sp2): 44.2 ml LAV(MOD-sp4): 30.5 ml RA A4 area: 8.7 cm2 Doppler Measurements AND Calculations MV E max jerry: 81.9 cm/sec Lat Peak E' Jerry: 10.8 cm/sec Med Peak E' Jerry: 9.0 cm/sec MV A max jerry: 98.5 cm/sec E/E' lat: 7.6 E/E' med: 9.1 MV E/A: 0.83 Ao V2 max: 167.4 cm/sec LV V1 max: 108.7 cm/sec PA V2 max: 121.3 cm/sec Ao max P.2 mmHg LV V1 max P.7 mmHg JONATAN(V,D): 2.5 cm2 Interpretation Summary Left ventricular systolic function is normal. The estimated ejection fraction is 60 %. Trivial mitral valve insufficiency. Trivial tricuspid valve insufficiency. Bicuspid aortic valve. Mild diffuse aortic valve thickening. Mild (1+) eccentric aortic valve insufficiency. Transmitral doppler flow suggestive of impaired relaxation of left ventricle Comment / Disclaimer: The offiial transthoracic echocardiogram report was delayed secondary to [facility] Information Systems technical issues. A hand writtern preliminary report was previously made available for review. Ordering Physician: Cj Castellanos Referring Physician: Vishnu Owen MD Performed By: Macie Boston RDCS 02/08/18 1109 Date Cj Castellanos MD CC: Vishnu Owen MD; Cj Castellanos MD Date Dictated: 01/24/18 1114 Date Transcribed: 02/08/18 110 Block Mason: Signed STRESS REPORT Observed: 02/04/2018 Status: F Source: [place] 4:37 PM [facility] REPOSITORY [facility] Cardiovascular Services [address] [place] [address] MR#: [id number] Acct: [id number] Name: RAMÓN MONACO Rep #: [id number] : 1970 47 From: Cj Castellanos MD Primary Care: Vishnu Owen MD Status: REG CLI Ordering Dr: Sex: M C Stress Test Report Date: 02/04/2018 Procedure: Exercise tolerance test/imaging study Indications: Chest pain Consent: Per the patient Procedure: The patient exercised on a Charles protocol for 9 minutes completing Stage III achieving a peak heart rate of 157 bpm (90 % predicted maximal heart rate) with a peak blood pressure 178/66 mmHg and a peak MET capacity of 10 METs. The baseline ECG demonstrated normal sinus rhythm. The peak exercise ECG demonstrated somatic/motion artifact with no obvious ECG changes. There was a rare PVC during exercise and recovery. The functional capacity was considered good. There was no complaint of chest discomfort during exercise or recovery. The examination was discontinued secondary to dyspnea. Impression: 1. Technically adequate (percent predicted maximal heart rate greater than 85%) exercise tolerance test 2. Peak exercise ECG demonstrated somatic/motion artifact with no obvious ECG changes 3. There was a rare PVC during exercise and recovery. 4. Nuclear images pending Myocardial perfusion imaging study: Technique: The patient was injected with 11.1 mCi of technetium 99m Cardiolite and subsequently rest SPECT Cardiolite nuclear imaging was obtained in the horizontal long, vertical long, and short axis views. The patient exercised on a Charles protocol for 9 minutes completing Stage III achieving a peak heart rate of 157 bpm (90 % predicted maximal heart rate) with a peak blood pressure 178/66 mmHg and a peak MET capacity of 10 METs. The patient was injected with 32.8 mCi of technetium 99m Cardiolite and subsequently stress SPECT Cardiolite nuclear imaging was obtained in the horizontal long, vertical long, and short axis views. A gated Cardiolite study at peak stress was obtained. Interpretation: Rest and stress SPECT Cardiolite nuclear imaging status post realignment, normalization, and attenuation correction, demonstrates the appearance of relative uniform tracer uptake and myocardial perfusion appearing within normal limits. There is end systolic thickening and brightening. The gated Cardiolite study demonstrates myocardial thickening and inward wall motion. The reported LVEF is 58 %. Impression: 1. Rest and stress SPECT Cardiolite nuclear imaging demonstrate relative uniform tracer uptake and myocardial perfusion appearing within normal limits. 2. The gated Cardiolite study reports an LVEF of 58 %. This note was generated with [email or web address] software. It may contain incorrect words, spelling, and punctuation that were not noted in checking the note before signing. 02/04/18 1637 <Electronically signed by Cj Castellanos MD> Date Cj Castellanos MD CC: Vishnu Owen MD; Cj Castellanos MD Date Dictated: 02/04/181630 Date Transcribed: 02/04/181630 Block Mason: PM Signed LIVER PROFILE Collected: 01/21/2018 Status: F Source: [place] 2:34 PM [facility] REPOSITORY TYPE CODE TESTS RESULT OUT OF RANGE REFERENCE UNITS LAB L501.1500 6.4-8.2 g/dL Normal T PROT 7.8 LAB L501.1800 3.2-5.0 g/dL Normal ALB 4.0 LAB L501.1950 2.2-4.2 g/dL Normal GLOB 3.8 LAB L501.4100 15-37 U/L Normal AST 30 LAB L501.4305 45-117 U/L Low ALK P 36 LAB L501.4405 16-61 U/L Normal ALT 34 LAB L501.4600 0.20-1.00 mg/dL Normal T BILI 0.40 LAB L501.4700 0.00-0.30 mg/dL Normal D BILI 0.12 Performed By: #### L500.3400, L500.4100 #### [facility] [address] [place], [address] LIPID PROFILE Collected: 01/21/2018 Status: F Source: [place] 2:34 PM [facility] REPOSITORY TYPE CODE TESTS RESULT OUT OF RANGE REFERENCE UNITS LAB L501.4900 200 mg/dL High CHOL 203 Result Comment: <200 mg/dL Desirable 200-240 mg/dL Borderline >240 mg/dL High Risk LAB L501.5000 mg/dL Normal TRIG 150 Result Comment: The drugs N-Acetylcysteine and Metamizole may falsely depress this assay. Serum Triglycerides Reference Interval Normal <150 mg/dL Borderline high 150 - 199 mg/dL High 200 - 499 mg/dL Very High > or = 500 mg/dL LAB L501.6400 mg/dL Normal HDL 45 Result Comment: The drugs N-Acetylcysteine and Metamizole may falsely depress this assay. Reference Range HDL <40 mg/dL Low HDL Cholesterol HDL >or= 60 mg/dL High HDL Cholesterol LAB L501.6500 0-130 mg/dL Normal LDL 128 LAB L501.6600 5-40 mg/dL Normal VLDL 30 Performed By: #### L500.3400, L500.4100 #### [facility] [address] [place], [address] CARDIOLOGY VISIT Observed: 01/13/2018 Status: F Source: [place] REPORT 4:52 PM [facility] REPOSITORY [facility] [address] [place] [address] OFFICE VISIT Date of Service: 01/13/18 MR#: [id number] Acct: [id number] Name: RAMÓN MONACO Rep #: [id number] : 1970 Provider: Cj Castellanos MD Age/Sex: 47/M Location: [facility] [place] Status: Signed HPI HPI Details: RAMÓN MONACO, is a 47 M who presents to the office today for outpatient cardiovascular follow-up. Since his last outpatient visit of 01/14/2017 he states overall he is done well, remained out of the hospital, and has not had to go through any other cardiovascular procedures. He does note that he gets some intermittent chest discomfort. He states it is not a pain. It does come and go. It may come and go more with exertion than at rest. He has not had obvious orthopnea, PND, or peripheral pitting edema. There has been no near syncope or syncope. There is been no unexplained fevers chills or night sweats. He did have an ECG in the office today. He was noted to be an underlying sinus rhythm. He had poor R-wave progression which he has had in the past, however, this may be somewhat more prominent compared to previous ECGs. Thus it is not unreasonable to consider further evaluation of his left ventricular wall motion systolic function as well as his coronary anatomy/physiology. Intake Vital Signs01/13/18 Height 5 ft 9 in 01/13/18 Weight: 196 lb 01/13/18 Body Mass Index (BMI) 28.9 01/13/18 Blood Pressure 142/70 Intake Visit Reasons: 1 Y FU Allergies carbamazepine Allergy (Severe, Verified 01/13/18 13:08) Rash lithium [[place]] Allergy (Verified 01/13/18 13:08) Other metoclopramide HCl [From Reglan] Allergy (Verified 01/13/18 13:08) Other metoclopramide Adverse Reaction (Severe, Verified 01/13/18 13:08) Anxiety Medications Clonazepam [Klonopin] 0.5 mg PO 4X/DAY PRN PRN 10/29/13 [History Confirmed 01/13/18] Bupropion HCl [Wellbutrin Xl] 450 mg PO DAILY 01/20/17 [History Confirmed 01/13/18] Dextroamphetamine/Amphetamine [Adderall Xr 20 mg Capsule] 40 mg PO DAILY 01/20/17 [History Confirmed 01/13/18] fenofibrate micronized 200 mg capsule 200 mg PO QDAY #30 cap 08/02/17 [Rx Confirmed 01/13/18] atorvastatin 40 mg tablet 40 mg PO QDAY 01/09/18 [History Confirmed 01/13/18] cholecalciferol (vitamin D3) 400 unit capsule 400 unit PO QDAY 01/09/18 [History Confirmed 01/13/18] finasteride 5 mg tablet 5 mg PO QDAY 01/09/18 [History Confirmed 01/13/18] citalopram 20 mg tablet 40 mg PO DAILY tab 01/13/18 [History Confirmed 01/13/18] PFS Medical History Bicuspid aortic valve (Chronic) Nonrheumatic aortic (valve) insufficiency (Chronic) Syncope and collapse (Acute) Hyperlipidemia (Chronic) Hypertriglyceridemia (Chronic) Anxiety (Acute) Depression (Acute) Cabello's sarcoma (Acute) Cottrell-Harrison syndrome (Acute) Surgical History History of surgery on upper extremity (Resolved) Family History Father CAD (coronary artery disease) Diabetes Myocardial infarction, Onset Age: 55 Social History Smoking Status: Never smoker alcohol intake: current ROS Const Const: Negative for fatigue, weakness, weight gain, weight loss, frequent falls or excessive sweating Eyes Eyes: Negative for change in vision, blurry vision or transient loss of vision ENT ENT: Positive for dizziness (carrying things upstairs or mowing the grass); negative for balance problems Cardio Chest Pain: Yes Character: other (pressure) Onset: exercise Location: left chest Duration: brief Exacerbation: activity Palpitations: No Edema: None Muscle aches with walking: None Resp Respiratory: Positive for SOB with activity (increased); negative for SOB at rest GI GI: Negative vomiting or vomiting blood/hematemesis : Negative for hematuria Musc Musc: Positive for joint pain (left knee pain); negative for balance problems, muscle aches/ myalgia or muscle weakness Skin Skin: Negative non-healing lesions or rash Neuro Neuro: Positive for dizziness (carrying things upstairs or mowing the grass); negative for weakness, blurry vision, lightheadedness, frequent falls or orthostatic symptoms Vincent Hematologic/Lymphatic: Negative for easy bleeding Endo Endo: Negative for fatigue or excessive sweating Psych Psych: Negative for anxiety or depression Allergy Allergy/Immunology: Negative for hives, Negative for rash Cardiology Exam Const Appearance: cooperative, healthy appearing, comfortable, no acute distress, well developed and well groomed Nutritional Appearance: overweight Orientation: alert, awake and oriented x3 Head Head: normal to inspection and normocephalic Ears: hearing grossly normal bilaterally Nose: external nose normal Face and Sinus: face symmetric Mouth: oral mucosae normal Teeth and gingiva: fair dentition Eyes Eyelids: eyelids normal Conjunctivae: conjunctivae normal Pupils: PERRL EOM: EOM intact bilaterally Neck Neck: normal visual inspection and full ROM Carotids: normal carotid upstroke Chest Chest inspection: normal inspection of the chest and symmetric chest movement Auscultation: Bilateral: Clear to Auscultation Cardio Palpation: normal PMI Rate: regular rate Rhythm: regular rhythm Heart sounds: S1 normal, S2 normal and early systolic click Murmur: Grade 2/6, soft, mid systolic, LLSB, LVOT and sternal notch 1/6 diastolic murmur @ LLSB GI GI: normal to inspection, bowel sounds present, soft and no hepatosplenomegaly Neuro General: alert, awake, oriented x3, gait normal and moves all extremities Skin Skin: no rashes or lesions noted Extremities Pulses: Normal: Right Radial Pulse, Left Radial Pulse Lower Extremity Edema: None: Bilateral Psych Psychological: flat affect Supplemental Info He did have a transthoracic echocardiogram on 02/21/2016. The results are as noted below. Interpretation Summary Left ventricular systolic function is normal. The estimated ejection fraction is 55 %. Trivial mitral valve insufficiency. Trivial eccentric tricuspid valve insufficiency. Bicuspid aortic valve. Mild diffuse aortic valve thickening. Mild focal aortic valve calcification. Mild (1+) eccentric aortic valve insufficiency. Right ventricular systolic pressure estimated to be 30 mmHg. Assessment AND Plan 1. Chest pain, unspecified type R07.9 Plan The etiology of his chest pain is unclear. He does not have all of the typical features for underlying angina pectoris. However, is not unreasonable, as he is never been evaluated for obvious premature coronary artery disease, etc., to undergo further evaluation. This would include an exercise tolerance test/imaging study. Depending upon the findings he may or may not need further cardiac diagnostic studies/intervention. Orders Orders: 2. Bicuspid aortic valve Q23.1 Plan He does have a history of an underlying bicuspid aortic valve. It appears less likely this would have become hemodynamically significant in a relatively short period of time to lead to any symptoms or compromise. However this will be reassessed with an echocardiographic study. Orders Orders: 3. Nonrheumatic aortic valve insufficiency I35.1 Plan He does have an element of aortic valve insufficiency associated with his bicuspid aortic valve. Again this will be reassessed noninvasively as noted above. Orders Orders: 4. Hyperlipidemia, unspecified hyperlipidemia type E78.5 Plan He does not believe his lipid profile has been checked for over a year. He will be established for future fasting lipid/hepatic profile as he is on lipid- lowering medication. Orders Orders: 5. Hypertriglyceridemia E78.1 Plan His triglycerides will be evaluated as well. Depending upon his triglyceride findings he may need adjustment in his lipid-lowering therapy. Plan Detail Additional Comments The above was discussed with him. He was agreeable to this approach. Thank you for allowing me to participate in the care of your patient. Please don't hesitate to call if any issues arise. This note was generated using a voice recognition system and there may be incorrect words, spelling or punctuation that were not noted when reviewing the office note prior to saving. Follow Up 1 Year (PFM) Coding Level of Care Code Off vis,est,level 4 Diagnoses Chest pain, unspecified type R07.9 Chest pain type: unspecified Bicuspid aortic valve Q23.1 Nonrheumatic aortic valve insufficiency I35.1 Hyperlipidemia, unspecified hyperlipidemia type E78.5 Hyperlipidemia type: unspecified Hypertriglyceridemia E78.1 Coding Level of Care Code Off vis,est,level 4 Diagnoses Chest pain, unspecified type R07.9 Chest pain type: unspecified Bicuspid aortic valve Q23.1 Nonrheumatic aortic valve insufficiency I35.1 Hyperlipidemia, unspecified hyperlipidemia type E78.5 Hyperlipidemia type: unspecified Hypertriglyceridemia E78.1 01/13/18 1652 <Electronically signed by Cj Castellanos MD> Date Cj Castellanos MD Cosigner Signature: Date (if applicable) CC: Vishnu Owen MD 12 LEAD EKG PERFORMED Observed: 01/13/2018 Status: F Source: [facility] BY RICK 1:17 PM [facility] REPOSITORY [address] [place] [address] [place] [address] 12 Lead EKG performed by RICK 01/13/18 1316 MR#: [id number] Acct: [id number] Name: RAMÓN MONACO Rep #: [id number] : 1970 47 From: Cj Castellanos MD Attending Dr: Cj Castellanos MD Status: DEP AMB Ordering Dr: Cj Castellanos MD Date: 01/13/18 Location: [facility] [place] Sex: M C Admitted: [facility] [place]/12 Lead EKG performed by [facility] [place] ECG Report Interpretation Sinus Tachycardia Poor R wave progressionAnterior [place], age undetermined, cannot be excludedABNORMAL Electronically signed on 01/13/2018 at 15:40 by Cj Castellanos 01/13/18 1545 Date Cj Castellanos MD CC: Vishnu Owen MD Date Dictated: 01/13/18 1316 Date Transcribed: 01/13/181315 Block Mason: PM Signed ORTHOPEDIC VISIT Observed: 09/23/2017 Status: F Source: SHANITA REPORT 4:41 PM [facility] REPOSITORY [facility] Orthopaedics AND Sports Medicine [address] [place] [address] OFFICE VISIT Date of Service: 09/23/17 MR#: [id number] Acct: [id number] Name: RAMÓN MONACO Rep #: [id number] : 1970 Provider: Андрей Irving DO Age/Sex: 46/M [place] [facility] [place]: Signed Intake Intake Visit Reasons: LEFT KNEE Is patient in pain?: Yes Allergies lithium [[place]] Allergy (Verified 09/23/17 09:17) Other metoclopramide HCl [From Reglan] Allergy (Verified 09/23/17 09:17) Other Medications Clonazepam [Klonopin] 0.5 mg PO 4X/DAY PRN PRN 10/29/13 [History Confirmed 01/20/17] Simvastatin [Zocor] 20 mg PO QHS 10/29/13 [History Confirmed 01/20/17] Bupropion HCl [Wellbutrin Xl] 450 mg PO DAILY 01/20/17 [History Confirmed 01/20/17] Citalopram Hydrobromide [Celexa] 20 mg PO DAILY 01/20/17 [History Confirmed 01/20/17] Dextroamphetamine/Amphetamine [Adderall Xr 20 mg Capsule] 40 mg PO DAILY 01/20/17 [History Confirmed 01/20/17] fenofibrate micronized 200 mg capsule 200 mg PO QDAY #30 cap 08/02/17 [Rx] PFSH Medical History Depression (Acute) Cabello's sarcoma (Acute) Cottrell-Harrison syndrome (Acute) Family History Father CAD (coronary artery disease) Diabetes Social History Smoking Status: Never smoker alcohol intake: current HPI LEFT KNEE: Chief Complaint: left knee Details: RAMÓN MONACO is a 46 year old M here today for continued left knee pain. Patient had an injection on 05/06/17 which was helpful for about 3 months. He complains of pain over his anteriomedial knee. He denies any popping, clicking, grinding or swelling. He has increased knee pain with ambulation. Denies numbness, tingling or other associated symptoms. ROS Const Reports system reviewed and no additional complaints, except as docu Eyes Reports system reviewed and no additional complaints, except as docu ENT Reports system reviewed and no additional complaints, except as docu Card Reports system reviewed and no additional complaints, except as docu Resp Reports system reviewed and no additional complaints, except as docu GI Reports system reviewed and no additional complaints, except as docu Reports system reviewed and no additional complaints, except as docu Musc Reports joint pain, Reports stiffness Skin/Breast Reports system reviewed and no additional complaints, except as docu Neuro Yes system reviewed and no additional complaints, except as docu Psych Reports system reviewed and no additional complaints, except as docu Endo Reports system reviewed and no additional complaints, except as docu Ortho Exam Right Knee Patella Translation: 1 Left Knee Contralateral Normal: Yes Swelling: Yes Homans Sign: No 1+: Effusion Quad Atrophy: No Examination: Med jt line tenderness, Lat jt line tenderness, Pain with flexion, Crepitus Stability: NML: Anterior Drawer, NML: Elly, NML: Posterior Drawer, NML: Valgus 0, NML: Valgus 30, NML: Varus 0, NML: Varus 30, NML: Dial 90, NML: Dial 30 Popliteal Adenopathy: No Patella Translation: 1 Apprehension with Lateral Translation: No Patellar Tilt Normal: Yes Patella Grind: No Office Procedures Ortho Injections Injections Yes Knee Left Details: Obtained consent for injection. Under sterile conditions, injected the patients left knee with a 10cc cocktail of 8cc bupivacaine and 2cc kenalog . The patient tolerated the injection well without any noted complication. Patient should call our office if redness develops, pain worsens or if they have any concerns. Office Meds Kenalog Performing Provider: Андрей Irving DO Administered by: Андрей Irving DO on 09/23/17 09:33 Dose Route Admin Location Lot Number Expiration DateNDC Senior Energy Analyst 2 mg Intra-Articularleft knee [id number] 11/24/18 0574-1422-09 [employer]space Assessment AND Plan Problems 1. Chronic pain of left knee M25.562; G89.29 2. Other internal derangements of left knee M23.8X2 Plan Assessment: Left knee pain left knee internal derangement. Plan: This point time the patient responded well to his left knee injection. Patient would like to proceed with another. He was counseled and consented for a left knee intra-articular injection using standard technique. Obtained consent for injection. Under sterile conditions, injected the patients left knee with a 10cc cocktail of 8cc bupivacaine and 2cc kenalog . The patient tolerated the injection well without any noted complication. Patient should call our office if redness develops, pain worsens or if they have any concerns. 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) 09/23/17 1641 <Electronically signed by Андрей Irving DO> Date Андрей Salicdo Signature: Date (if applicable) CC: ALLERGIES ALLERGIES DATE TYPE / NAME / CODE REACTION SEVERITY SOURCE CODE 07/28/2018 Drug metoclopramide Other Unknown [place] Allergy/41 HCl/[id number](RXNOR Community [id number]([facility]) Repository 07/28/2018 Drug lithium/[id number](R Other Unknown [place] Allergy/41 XNORM) Community [id number]([facility]) Repository 07/28/2018 Drug carbamazepine/S71859 Rash [place] Allergy/41 1634(RXNORM) Community [id number]([facility]) Repository 07/28/2018 Drug metoclopramide/F0060 ANXIETY SV [place] Allergy/41 39778(RXNORM) [facility] [id number]([facility]) Repository ENCOUNTERS ENCOUNTERS ADMIT/DISCHARGE ACCOUNT ADMITTING ENCOUNTER LOCATION SOURCE NUMBER CLASS 08/12/2018 [id number] Ambulatory [place] 4 [facility] ing:PT Repository 08/05/2018/ [id number] Ambulatory BMSBuilding:B [place] 8 2 [facility] Repository 07/28/2018/ [id number] Ambulatory BMSBuilding:B [place] 8 7 [facility] Repository 07/23/2018/ [id number] Ambulatory BMSBuilding:B [place] 8 9 [facility] Repository 07/23/2018/ [id number] Ambulatory [place] 8 3 [facility] ing:SDCRoom: Repository AC09 07/07/2018/ [id number] Ambulatory BMSBuilding:B [place] 8 1 [facility] Repository 06/10/2018 [id number] Ambulatory [place] 5 [facility] ing:SDC Repository 06/03/2018/ [id number] Ambulatory BMSBuilding:B [place] 8 4 [facility] Repository 04/24/2018/ [id number] Ambulatory BMSBuilding:B [place] 8 0 [facility] Repository 04/21/2018 [id number] Ambulatory [place] 2 [facility] ing:MTLAB Repository 04/17/2018/ [id number] Ambulatory BMSBuilding:B [place] 8 8 [facility] Repository 03/31/2018 [id number] Ambulatory [place] 2 [facility] ing:MRI Repository 03/18/2018 [id number] Ambulatory [place] 3 [facility] ing:MASS Repository 03/11/2018/ [id number] Ambulatory BMSBuilding:B [place] 8 2 [facility] Repository 02/04/2018 [id number] Ambulatory [place] 1 [facility] ing:CVS Repository 02/04/2018 [id number] Ambulatory BMSBuilding:W [place] 7 [facility] Hospital Repository 01/24/2018 [id number] Ambulatory [place] 6 [facility] ing:CVS Repository 01/24/2018 [id number] Ambulatory BMSBuilding:W [place] 6 [facility] Hospital Repository 01/21/2018 [id number] Ambulatory [place] 2 [facility] ing:MTLAB Repository 01/13/2018/ [id number] Ambulatory BMSBuilding:B [place] 8 4 [facility] Repository 01/09/2018 [id number] Ambulatory BMSBuilding:B [place] 6 [facility] Repository 09/23/2017/ [id number] Ambulatory BMSBuilding:B [place] 8 8 [facility] Repository PAYERS PAYERS ENCOUNTER GUARANTOR PAYER SUBSCRIBER SOURCE 08/12/2018 RAMÓN [id number] [place] Insurance:YULIANA CADENA: [facility] [place]ICAREPolicy [id number] Number: Repository [address]Ddk: (722) [id number] [phone] () Date:4304-60-61TW [address] [place] [address]YZ: 08/12/2018 Secondary NOT GIVENUNK [place] Insurance:SELF PAY [facility] Number: Effective Repository Date:2018-08-05 08/05/2018 RAMÓN Mcwilliams Primary RAMÓN [place] [id number] [place] Insurance:[facility] C[facility] CORRIG[facility]OB: [facility] CENTER MEDICAREPolicy [id number] Number: Repository [address]Oea: 330 [id number] [phone] () Date:1499-53-42TD [address], [place] [address]ER: 08/05/2018 Secondary NOT GIVENUNK [place] Insurance:SELF PAY [facility] Number: Effective Repository Date:2018-08-04 07/28/2018 RAMÓN Mcwilliams Primary RAMÓN [place] [id number] [place] Insurance:SUMMA CARE MOOREDOB: Community CENTER MEDICAREPolicy [id number] Number: Repository [address]Esm: 330 [id number] [phone] () Date:9159-28-03KD [address] [place] [address]OH: 07/28/2018 Secondary NOT GIVENUNK [place] Insurance:SELF PAY [facility]: Effective Repository Date:2018-07-28 07/23/2018 RAMÓN Mcwilliams Primary RAMÓN [place] [id number] [place] Insurance:[facility]MA CARE MOOREDOB: Community CENTER MEDICAREPolicy [id number], [place] Number: Repository [address]Srk: 330 [id number] [phone] () Date:0912-12-92DH [address] [place] [address] 735[address]AB: 07/23/2018 Secondary NOT GIVENUNK [place] Insurance:SELF PAY [facility] Number: Effective Repository Date:2018-07-23 07/23/2018 RAMÓN Mcwilliams Primary RAMÓN [place] [id number] [place] Insurance:[facility] CARE MOOREDOB: Community CENTER MEDICAREPolicy [id number], [place] Number: Repository [address]Hlq: 330 [id number] (HP) Date:0208-51-90NT [address] [place] [address] 11581FA: 07/23/2018 Secondary NOT GIVENUNK [place] Insurance:SELF PAY [facility] Number: Effective Repository Date:2018-07-02 07/07/2018 RAMÓN Mcwilliams Primary NOT GIVENUNK [place] [id number] GILL Insurance:SELF PAY [place] Number: Effective Repository [id number]: 330) Date:2018-07-07 (HP) 06/10/2018 RAMÓN Mcwilliams Primary RAMÓN [place]rain[place] [id number] [place] Insurance:SUMMA CARE MOOREB: Community CENTER MEDICAREPolicy [id number], [place] Number: Repository [address]Rth: 330 [id number] (HP) Date:5662-30-76DX [address] [place] [address] 43643PV: 06/10/2018 Secondary NOT GIVENUNK [place] Insurance:SELF PAY [facility] Number: Effective Repository Date:2018-05-14 06/03/2018 RAMÓN A Primary RAMÓN Mcwilliams [place] [id number] G[place] Insurance:[facility] CARE [facility] MEDICAREPolicy [id number], [place] Number: Repository [address]Vmq: (330 [id number] (HP) Date:0198-94-07GP [address] [place] [address] 47399PD: 06/03/2018 Secondary NOT GIVENUNK [place] Insurance:SELF PAY [facility] Number: Effective Repository Date:2018-06-03 04/24/2018 RAMÓN Mcwilliams Primary RAMÓN [place] [id number] [place] Insurance:[facility] CARE [facility] MEDICAREPolicy [id number], [place] Number: Repository [address]Cvb: 330 [id number] [phone] () Date:1594-72-76UK [address] [facility] [place] [address]VM: 04/24/2018 Secondary NOT GIVENUNK [place] Insurance:SELF PAY [facility] Number: Effective Repository Date:2018-04-24 04/21/2018 RAMÓN Mcwilliams Primary RAMÓN Mcwilliams [place] [id number] [place] Insurance[facility] CARE MOOREDOB: Community CENTER MEDICAREPolicy [id number], [place] Number: Repository [address]Bdz: 330 [id number] [phone] () Date:0053-18-87LX [address] [place] [address] 523[address]PO: 04/21/2018 Secondary NOT GIVENUNK [place] Insurance:SELF PAY [facility] Number: Effective Repository Date:2018-04-21 04/17/2018 RAMÓN A Primary RAMÓN Mcwilliams [place] [id number] [place] Insurance:[facility] CARE MOOREDOB: Community CENTER MEDICAREPolicy [id number], [place] Number: Repository [address]Dah: 330 [id number] [phone] () Date:0565-03-91QW [address] [place] [address] 940[address]JN: 04/17/2018 Secondary NOT GIVENUNK [place] Insurance:SELF PAY [facility] Number: Effective Repository Date:2018-04-17 03/31/2018 RAMÓN A Primary RAMÓN A [place] [id number] [place] Insurance:[facility] CARE MOOREDOB: Community CENTER MEDICAREPolicy [id number], [place] Number: Repository [address]Ufp: 330 [id number] [phone] () Date:3512-93-26NS [address] [place] [address] 50098OK: 03/31/2018 Secondary NOT GIVENUNK [place] Insurance:SELF PAY [facility] Number: Effective Repository Date:2018-03-18 03/18/2018 RAMÓN A Primary NOT GIVENUNK [place] [id number] [place] Insurance:SELF [place] Number: Effective Repository [address]23[address]Rbc: (330) Date:2018-03-17 () 03/11/2018 RAMÓN Mcwilliams Primary RAMÓN [place] [id number] [place] Insurance:[facility] CARE CORRIGANDOB: Community CENTER MEDICAREPolicy [id number], [place] Number: Repository [address]Oou: (330) [id number] [phone] () Date:3684-17-67MV [address] [place] [address] 70362NC: 03/11/2018 Secondary NOT GIVENUNK [place] Insurance:SELF PAY [facility] Number: Effective Repository Date:2018-03-11 02/04/2018 RAMÓN Mcwilliams Primary RAMÓN [place] [id number] [place] Insurance:[facility] CARE CORRIGANDOB: Community CENTER MEDICAREPolicy [id number], [place] Number: Repository [address]15[address]Qbc: (330) [id number] [phone] () Date:3506-63-50HZ [address] [place] [address] 630[address]MI: 02/04/2018 Secondary NOT GIVENUNK [place] Insurance:SELF PAY [facility] Number: Effective Repository Date:2018-02-04 02/04/2018 RAMÓN Mcwilliams Primary RAMÓN [place] [id number] [place] Insurance:[facility] CARE MOOREDOB: Community CENTER MEDICAREPolicy [id number] Number: Repository [address]Qyy: (330) [id number] [phone] () Date:1398-09-34QQ [address] [place] [address] 24514BC: 02/04/2018 Secondary NOT GIVENUNK [place] Insurance:SELF PAY [facility] Number: Effective Repository Date:2018-02-04 01/24/2018 RAMÓN A Primary RAMÓN [place] [id number] [place] Insurance:[facility] CARE MOOREDOB: Community CENTER MEDICAREPolicy [id number], [place] Number: Repository [address]Bua: 330 [id number] [phone] (HP) Date:1791-99-17AD [address] [place] [address] 44112FD: 01/24/2018 Secondary NOT GIVENUNK [place] Insurance:SELF PAY [facility] Number: Effective Repository Date:2018-01-13 01/24/2018 RAMÓN Mcwilliams Primary RAMÓN [place] [id number] [place] Insurance:[facility] CARE MOOREDOB: Community CENTER MEDICAREPolicy [id number], [place] Number: Repository 70[address]Paf: 330 [id number] [phone] (HP) Date:8023-21-18WG [address] [place] [address] 45817PO: 01/24/2018 Secondary NOT GIVENUNK [place] Insurance:SELF PAY [facility] Number: Effective Repository Date:2018-01-24 01/21/2018 RAMÓN Mcwilliams Primary RAMÓN [place] [id number] [place] Insurance:[facility] CARE MOOREDOB: Community CENTER MEDICAREPolicy [id number], [place] Number: Repository 869[address]Tlt: (330 [id number] [phone] () Date:7861-64-72QT [address] [place] [address] 80587WQ: 01/21/2018 Secondary NOT GIVENUNK [place] Insurance:SELF PAY [facility] Number: Effective Repository Date:2018-01-21 01/13/2018 RAMÓN Mcwilliams Primary RAMÓN [place] [id number] [place] Insurance:[facility] CARE MOOREDOB: Community CENTER MEDICAREPolicy [id number] Number: Repository [address]Sep: (330 [id number] [phone] (HP) Date:9954-97-52QE [address] [place] [address] 19142BI: 01/13/2018 Secondary NOT GIVENUNK [place] Insurance:SELF PAY [facility] Number: Effective Repository Date:2017-08-15 01/09/2018 RAMÓN Mcwilliams Primary RAMÓN [id number] [place] Insurance:[facility]: Community CENTER MEDICAREPolicy [id number] Number: Repository [address]Nod: 330 [id number] [phone] () Date:6110-28-55FO [address] [place] [address] 17533XN: 01/09/2018 Secondary NOT GIVENUNK [place] Insurance:SELF PAY [facility] Number: Effective Repository Date:2018-01-09 09/23/2017 RAMÓN Mcwilliams Primary RAMÓN [place] [id number] [place] Insurance:[facility]: Community CENTER MEDICAREPolicy 1971-03-[place] Number: Repository 83[address]Bvt: 330 [id number] [phone] () Date:2871-06-01AV [address] [place] [address] 39995IC: 09/23/2017 Secondary NOT GIVENUNK [place] Insurance:SELF PAY [facility] Number: Effective Repository Date:2017-09-19
== END 2018-07-23 18:40 | disposition home or self-care (01) ==
LOC: SDC 11:08 → AC 11:10
PROVIDERS: Anesthesiology; Family Provider Family Medicine; PCP Family Medicine; Referring Provider Orthopaedic Surgery; Visit Provider Orthopaedic Surgery
PROC: 3E0U3GB Introduction of Recombinant Bone Morphogenetic Protein into Joints, Percutaneous Approach (ICD-10-PCS; CPT 0707T; principal; 2018-07-23 12:30)
DX: S83.242A Other tear of medial meniscus, current injury, left knee, initial encounter (principal); M87.052 Idiopathic aseptic necrosis of left femur; X58.XXXA Exposure to other specified factors, initial encounter; Y93.9 Activity, unspecified; Y92.9 Unspecified place or not applicable; Y99.9 Unspecified external cause status; C41.9 Malignant neoplasm of bone and articular cartilage, unspecified; L51.1 Stevens-Johnson syndrome; M65.9 Synovitis and tenosynovitis, unspecified; Q23.1 Congenital insufficiency of aortic valve; E78.5 Hyperlipidemia, unspecified; K21.9 Gastro-esophageal reflux disease without esophagitis; D75.89 Other specified diseases of blood and blood-forming organs; F32.9 Major depressive disorder, single episode, unspecified; F41.9 Anxiety disorder, unspecified; Z79.899 Other long term (current) drug therapy
CPT/HCPCS: 01400; 29855; 29876; 29881; 64447; 36415; 73560; 76000; 80048; 80076; 85027; 85610; 85730; C1713; J7120

== ENCOUNTER 2018-08-25 11:30 | Outpatient (RCR) | payer MEDICARE, SELFPAY ==
[2018-08-05 13:25] VITALS: BMI 27.1
--- NOTE | 2018-08-12 11:49 | HP.PTEVAL_ITS ---
Patient's Visit Information RAMÓN MONACO is a 47 year old M referred to Physical Therapy by Angella Apple DO with a diagnosis of Left DSA of the knee. Date of Evaluation: 08/12/18 Physical Therapist: Kristel Pan DPT - Visit Plan Frequency: 2x /Week Duration: 3 Weeks Plan: DSA left knee- focus on strength and function - Subjective Findings: Patient reports surgery 3 weeks ago tomorrow. Left knee scope- Fully I before surgery- it was just an irritable issue- insidious onset. Walks the dog but other than that not very active. Went home straight from surgery- no problems getting around his house. Work: does not work. Is not back to running- but he doesn?t feel like he can get back to his activities- after 5-10 min on it its sore. Feels unstable and feels like it gives out. Pain is located along the medial and lateral joint line- No radiating pain. Describes the pain as dull and achy and sharp/shooting depending on what he is doing. No N/T in the LE. Sleep: not disturbed. Is back to driving and most of his easier ADL?s. Since the surgery he has been on the couch. Before surgery he was just performing ADL?s and walking the dog for 30 minutes. Goals: full range of motion and be able to run again. PMHx: none regarding his leg. Meds: no changes since surgery. Goes back to [facility] in about 3 weeks. - Objective Posture: FH, RS- can correct with VC's but does not maintain. Gait: no deviation noted. Stairs: asc/desc 8 recip with 1 HR- increased UE a for ascend and decreased control with descent. Balance: 5 sec then UE required and able to heel/toe walk forwards and backward x 5 steps with UE A from // bars for balance. HR/TR: able without incidence. Palpation: tender along medial and lateral joint line. Observation: incisions healing well- no s/s of infection. ROm: 0-120 degrees with 'tightness at end range flexion. Strength: Ankle: 5/5, Knee 4+/5, Hip: 4/5 throughout Core: fair. Flex: HS: moderate, Gastroc: mild - Goals Goal 1:: Patient will be I with HEP and progression Goal Time Frame: 4-6 Weeks Goal 2:: Patient will demo 5/5 strength in LE Goal Time Frame: 4-6 Weeks Goal 3:: Patient will return to all normal ADL's and recreational activities Goal Time Frame: 4-6 Weeks Goal 4:: Patient will maintain proper posture t/o tx session to demo increased core s/s Goal Time Frame: 4-6 Weeks Goal 5:: Patient will asc/desc 8' stairs recip with 1 HR and good control Goal Time Frame: 4-6 Weeks - Rehabilitation Potential Physical Therapy Diagnosis: Patient presents with hypomobility- s/p DSA of the left knee- he has decreased painfree ROM, strength and muscular endurance leading to decreased ability to perform ADL's. Rehabilitation Potential: Good - Anticipated Interventions Patient/Client Instruction: Educate patient on: Benefits of Fitness Program Therapeutic Exercise to Include: Strength training, Endurance training, Balance training, Body mechanics, Flexibilty training, Gait and locomotor training, Passive ROM, Active ROM, Dynamic Lumbar Stabilization For the Purpose of:: To improve muscle performance and motor function TENS: Yes Cryotherapy (ice pack, ice massage): Yes Thermo therapy (hot pack): Yes Ultrasound (thermal/non thermal): Yes For the Purpose of:: To decrease pain Thank you for the opportunity to evaluate your patient. For Medicare and Medicare HMO plans, please review the plan of care and approve it. It will need to be FAXED BACK to us at [phone] for Medicare purposes. For Medicare only, by signing this I certify the plan of care. Please let me know if there are questions or concerns regarding this plan of c are. Physician Signature: Date:
--- NOTE | 2018-08-25 11:46 | HP.PTDCSUM ---
HP - PT D/C Summary It has been my pleasure to treat RAMÓN MONACO under orders from Angella Apple DO, for the diagnosis of Left DSA of the knee for a total of 4 visit(s). Discharge Date: Please see the following information for a summary of their discharge status. 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 Reports tenderness along the medial joint. No radiating pain. Is back to walking his dogs. Is not currently doing squats and running but has not tried it. - Objective Objective/Function: Posture: good sitting in hard back chair. Gait: no deviation noted. Stairs: asc/desc 8 recip with 1 HR- good control. Balance: 10 sec then UE required and able to heel/toe walk forwards and backward x 5 steps with UE A from // bars for balance. HR/TR: able without incidence. Palpation: not tender to touch. Observation: incisions healing well- no s/s of infection. ROm: 0-130. Strength: Ankle: 5/5, Knee 5/5, Hip: 5/5 throughout Core: fair plus. Flex: HS: moderate, Gastroc: mild - Goals Goal 1:: Patient will be I with HEP and progression Goal Progress: Goal Met Goal 2:: Patient will demo 5/5 strength in LE Goal Progress: Goal Met Goal 3:: Patient will return to all normal ADL's and recreational activities Goal Progress: Goal Met Goal 4:: Patient will maintain proper posture t/o tx session to demo increased core s/s Goal Progress: Goal Met Goal 5:: Patient will asc/desc 8' stairs recip with 1 HR and good control Goal Progress: Goal Met - Plan Plan: Discharge to I HEP - D/C Information If there are questions or concerns regarding this patient's physical therapy, please feel free to call me at [phone]. Thank you for the referral of this patient. Sincerely, Kristel Pan DPT
--- OUTSIDE RECORDS SUMMARY | 2018-11-13 19:59 | XMS RPT_ITS ---
:1970 Author Organization OHIP Support Name Relationship Address Phone D Unavailable Unavailable Unavailable MONACOMAGDIHA Unavailable [address] + [place] [address] D Unavailable Unavailable Unavailable MAGDI MONACOHA Unavailable [address] + [place] [address] D Unavailable Unavailable Unavailable MONACOMAGDIHA Unavailable [address] + [place] [address] D Unavailable Unavailable Unavailable MONACOMAGDIHA Unavailable [address] + [place] [address] D Unavailable Unavailable Unavailable MONACOMAGDIHA Unavailable [address] + [place] [address] D Unavailable Unavailable Unavailable MAGDI MONACOHA Unavailable [address] + [place] [address] D Unavailable Unavailable Unavailable MONACOMAGDIHA Unavailable [address] + [place] [address] D Unavailable Unavailable Unavailable MONACOMAGDIHA Unavailable [address] + [place] [address] D Unavailable Unavailable Unavailable MONACOMAGDIHA Unavailable [address] + [place] [address] D Unavailable Unavailable Unavailable MONACOMAGDIHA Unavailable [address] + [place] [address] D Unavailable Unavailable Unavailable MONACOAMGDIHA Unavailable [address] + [place] [address] D Unavailable Unavailable Unavailable MONACOMAGDIHA Unavailable [address] + [place] [address] D Unavailable Unavailable Unavailable JACINDAMAGDIHA Unavailable [address] + [place] [address] D Unavailable Unavailable Unavailable NORMA MONACO Unavailable [facility] + [place] [address] D Unavailable Unavailable Unavailable MATTHEW MONACO Unavailable [facility] + [place] [address] D Unavailable Unavailable Unavailable MATTHEW MONACO Unavailable [facility] [address] + [place] [address] D Unavailable Unavailable Unavailable MATTHEW MONACO Unavailable [facility] [address] + [place] [address] D Unavailable Unavailable Unavailable MATTHEW MONACO Unavailable [facility] [address] + [place] [address] D Unavailable Unavailable Unavailable MATTHEW MONACO Unavailable [facility] [address] + [place] [address] D Unavailable Unavailable Unavailable MATTHEW MONACO Unavailable [facility] [address] + [place] [address] D Unavailable Unavailable Unavailable MATTHEW MONACO Unavailable [address] [place] [address] RD + [place] [address] D Unavailable Unavailable Unavailable MATTHEW MONACO Unavailable [facility] [address] + [place] [address] D Unavailable Unavailable Unavailable MATTHEW MONACO Unavailable [facility] [address] + [place] [address] Care Team Providers Name Role Phone Angella Apple Attending Unavailable Owen, Vishnu Referring Unavailable Angella Apple Attending Unavailable Angella Apple Referring Unavailable Owen, Vishnu Primary Care Unavailable Андрей Irving Attending Unavailable Owen, Vishnu Referring Unavailable Owen, Vishnu Primary Care Unavailable Meghan Weeks Attending Unavailable Angella Apple Attending Unavailable Felipe Lemus Attending Unavailable Owen, Vishnu Referring Unavailable MoodCj monsivais Attending Unavailable Owen, Vishnu Referring Unavailable Owen, Vishnu Primary Care Unavailable Cj Castellanos Attending Unavailable Cj Castellanos Referring Unavailable Brayden, Vishnu Primary Care Unavailable Cj Castellanos Attending Unavailable Cj Castellanos Referring Unavailable Owen, Vishnu Primary Care Unavailable Cj Castellanos Attending Unavailable Cj Castellanos Referring Unavailable Owen, Vishnu Primary Care Unavailable Moodispaaploma, Cj Attending Unavailable Chicorelli, Angella Attending Unavailable Owen, Vishnu Referring Unavailable Owen, Vishnu Primary Care Unavailable Moodispaw, Cj Attending Unavailable Owen, Vishnu Primary Care Unavailable Referred, Self Attending Unavailable Chicorelli, Angella Attending Unavailable Owen, Vishnu Primary Care Unavailable Chicorelli, Angella Referring Unavailable Chicorelli, Angella Attending Unavailable Owen, Vishnu Referring Unavailable Owen, Vishnu Primary Care Unavailable Moodispaw, Cj Attending Unavailable Moodispaw, Cj Referring Unavailable Owen, Vishnu Primary Care Unavailable Wayt, Felipe Attending Unavailable Owen, Vishnu Referring Unavailable Owen, Vishnu Primary Care Unavailable Chicorelli, Angella Attending Unavailable Owen, Vishnu Referring Unavailable Chicorelli, Angella Attending Unavailable Chicorelli, Angella Referring Unavailable Owen, Vishnu Primary Care Unavailable Wayt, Felipe Attending Unavailable Owen, Vishnu Referring Unavailable Chicorelli, Angella Attending Unavailable Chicorelli, Angella Referring Unavailable Owne, Vishnu Primary Care Unavailable Wayt, Felipe Attending Unavailable Owen, Vishnu Referring Unavailable PROBLEMS PROBLEMS DATE TYPE CONDITION / CODE ATTENDING STATUS SOURCE 08/11/2018 Unknown S83.242A - Other Chicorelli, Active [place] tear of medial [facility] meniscus, current Hospital injury, left knee, Repository initial encounter / S83.242A(ICD-10) 08/11/2018 Unknown 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, 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 / Hospital M87.052(ICD-10) Repository 08/11/2018 Unknown M65.862 - Other Chicorelli, Active [place] synovitis and [facility] tenosynovitis, left Hospital lower leg / Repository M65.862(ICD-10) 07/23/2018 Unknown G89.18 - Other acute Chicorelli, Active [place] postprocedural pain [facility] / G89.18(ICD-10) Hospital Repository 04/21/2018 Unknown E78.5 - Cj Castellanos Active [place] Hyperlipidemia, Community unspecified / Hospital E78.5(ICD-10) Repository 03/11/2018 Unknown M23.204 - Chicorelli, Active [place] Derangement of [facility] unspecified medial Hospital meniscus due to old Repository tear or injury, left knee / M23.204(ICD-10) 03/12/2018 Unknown R07.9 - Chest pain, AdrianaisCj davey unspecified / Community R07.9(ICD-10) Hospital Repository 02/04/2018 Unknown 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 / Hospital [...] Repository 01/09/2018 Unknown M23.8X2 - Other Андрей Irving internal Community derangements of left Hospital knee / Repository M23.8X2(ICD-10) PROCEDURES PROCEDURES No Procedure Records FoundRESULTS RESULTS ORTHOPEDIC VISIT Observed: 08/29/2018 Status: F Source: [place] REPORT 2:12 PM [facility] REPOSITORY [facility] [address] [place], [place] [id number] OFFICE VISIT Date of Service: 08/29/18 MR#: [id number] Acct: [id number] Name: RAMÓN MONACO Rep #: [id number] : 1970 Provider: XU Lemus Age/Sex: 47/M Location: [facility] Status: Signed Intake Vital Signs08/29/18 Body Mass Index (BMI) 27.1 Intake Visit Reasons: LEFT KNEE Is patient in pain?: No Allergies carbamazepine Allergy (Severe, Verified 08/29/18 13:04) Rash lithium [Rosemead] Allergy (Verified 08/29/18 13:04) Other metoclopramide HCl [From Reglan] Allergy (Verified 08/29/18 13:04) Other metoclopramide Adverse Reaction (Severe, Verified 08/29/18 13:04) Anxiety Medications finasteride 5 mg tablet 1 mg PO QDAY 01/09/18 [History Confirmed 07/15/18] Atorvastatin Calcium [Lipitor] 80 mg PO QHS 07/15/18 [History Confirmed 07/15/18] Citalopram [Celexa] 40 mg PO DAILY 07/15/18 [History Confirmed 07/23/18] buPROPion XL [Wellbutrin Xl] 450 mg PO DAILY 07/15/18 [History Confirmed 07/15/18] fenofibrate 150 mg capsule 200 mg PO DAILY #30 cap 08/25/18 [Rx] PFSH Medical History Bicuspid aortic valve (Chronic) [...] M here today for s/p left knee scope dos 07/23/18. Patient states that he is doing very well and has no pain. He has soreness at times but is able to most activities with no pain. He completed physical therapy but was discharged due to his progress. He is ambulating stairs with no pain. His incisions are fully healed. Denies numbness, tingling or other associated symptoms. [...] docu Ortho Exam Left Knee Skin/Wound: Yes healed Contralateral Normal: Yes Swelling: No Homans Sign: No Knee ROM: Yes ROM-Extension -20 to 0, Yes ROM-Flexion 0-140 Examination: No med jt line tenderness, No Lat jt line tenderness, No Jackson's Test, No Pain with flexion, No Crepitus Stability: NML: Anterior Drawer, NML: Posterior Drawer, NML: Valgus 30, NML: Varus 30 Popliteal Adenopathy: No KNEE: Patient has no evident abnormalities on inspection. He has normal healing incision sites without any signs of infection. He has no generalized or localized swelling of the knee. Patient has a full range of motion of the knee with normal strength comparable to the right knee. Patient has no pain with flexion and a negative Jackson's. He has no tenderness on palpation of the knee. He has normal sensation throughout the extremity. Assessment AND Plan Plan At this time patient is doing great 6 weeks postop from a left knee medial meniscectomy. Patient is healing well without any signs of infection. He has no localized or generalized swelling today. His motion and strength is returned back to normal comparable to the right side. He has returned to full duty at work without restrictions. He states he has no pain the vast majority of times. He states he gets a little achy at the end of the day sometimes but nothing localized and it is very minor. He has no locking, clicking, or instability of the knee. Patient feels very good and is very pleased with his results thus far. This point he is not taking any anti-inflammatories and stopped icing. He can take anti-inflammatories and ice if he needs it on days maybe when he overdoes it. Patient is to return in 6 weeks and can notify sooner with any increasing pains, increasing swelling, instability, or any other new concerns or complaints This note was generated with Agrividaation software. It may contain incorrect words, spelling, and punctuation that were not noted in checking the note before signing. . Coding Level of Care Code Global Post Op 08/29/18 1412 <Electronically signed by Felipe MCNAIR> Date Felipe Qureshi Signature: Date (if applicable) CC: PT D/C SUMMARY (1) Observed: 08/25/2018 Status: F [place]: [place] 11:46 AM [facility] REPOSITORY [facility] [address] [place] [address] / REHABILITATION SERVICES DISCHARGE SUMMARY MR#: [id number] Acct: [id number] Name: RAMÓN MONACO Rep #: [id number] : 1970 47 From: Kristel Pan DPT Referring Dr.: Angella Apple DO Status: REG [facility] Insurance: [employer] SELF PAY INSURANCE HP - PT D/C Summary It has been my pleasure to treat RAMÓN MONACO under orders from Angella Apple DO, for the diagnosis of Left DSA of the knee for a total of 4 visit(s). Discharge Date: Please see the following information for a summary of their discharge status. - Subjective Subjective: Patient reports that he feels the knee is 90% better but cyanide pot tender with bearing weight. Reports tenderness along the medial joint. No radiating pain. Is back to walking his dogs. Is not currently doing squats and running but has not tried it. - Objective Objective/Function: Posture: good sitting in hard back chair. Gait: no deviation noted. Stairs: asc/desc 8 recip with 1 HR- good control. Balance: 10 sec then UE required and able to heel/toe walk forwards and backward x 5 steps with UE A from // bars for balance. HR/TR: able without incidence. Palpation: not tender to touch. Observation: incisions healing well- no s/s of infection. ROm: 0-130. Strength: Ankle: 5/5, Knee 5/5, Hip: 5/5 throughout Core: fair plus. Flex: HS: moderate, Gastroc: mild - Goals Goal 1:: Patient will be I with HEP and progression Goal Progress: Goal Met Goal 2:: Patient will demo 5/5 strength in LE Goal Progress: Goal Met Goal 3:: Patient will return to all normal ADL's and recreational activities Goal Progress: Goal Met Goal 4:: Patient will maintain proper posture t/o tx session to demo increased core s/s Goal Progress: Goal Met Goal 5:: Patient will asc/desc 8' stairs recip with 1 HR and good control Goal Progress: Goal Met - Plan Plan: Discharge to [facility] - D/C Information If there are questions or concerns regarding this patient's physical therapy, please feel free to call me at [phone]. Thank you for the referral of this patient. Sincerely, Kristel Pan DPT <Electronically signed by Kristel Pan DPT> 08/25/18 1146 CC: Angella Apple DO; Vishnu Owen MD ELR Signed INITAL EVALUATION (1) Observed: 08/12/2018 Status: F Source: [facility] 11:49 AM [facility] REPOSITORY [facility] [address] [place] [address]. [address] [place], [place] [address] Fax REHABILITATION SERVICES INITIAL EVALUATION MR#: [id number] Acct: [id number] Name: RAMÓN MONACO Rep #: [id number] : 1970 47 From: Kristel Pan DPT [...] to be FAXED BACK to us at [phone] for Medicare purposes. For Medicare only, by signing this I certify the plan of care. Please let me know if there are questions or concerns regarding this plan of care. Physician Signature: Date: <Electronically signed by Kristel Pan DPT> 08/12/18 1149 CC: Angella Apple DO; Vishnu Owen MD ELR Signed ORTHOPEDIC VISIT Observed: 08/05/2018 Status: F Source: [facility] [place] REPORT 2:23 PM [facility] REPOSITORY [facility] [address] [place] [address] OFFICE VISIT Date of Service: 08/05/18 MR#: [id number] Acct: [id number] Name: RAMÓN MONACO Rep #: [id number] : 1970 Provider: Angella Apple DO Age/Sex: 47/M Location: [facility] Status: Signed Intake Vital Signs08/05/18 Body Mass Index (BMI) 27.1 Intake Visit Reasons: LEFT KNEE Allergies carbamazepine Allergy (Severe, Verified 07/28/18 13:48) Rash lithium [Rosemead] Allergy (Verified 07/28/18 13:48) Other metoclopramide HCl [...] OPERATIVE REPORT Observed: 07/30/2018 Status: F Source: [place] 10:22 AM [facility] REPOSITORY [facility] Medical Records Department [address] [place] [address] Operative Report 07/23/18 1546 MR#: [id number] Acct: [id number] Name: RAMÓN MONACO Rep #: [id number] : 1970 47 From: Angella Apple DO PCP: Vishnu Owen MD Status: [facility] Y Location: [facility] Report of Operation Date of Procedure: 07/23/18 Pre-Operative Diagnosis: left knee medial meniscus tear, synovitis, osteoarthritis, medial tibial plateau stress phenomenon Post-Operative Diagnosis: same Surgery/Procedure Performed:: salk, pmm, medial tibial plateau microinternal fixation, extensive synovectomy, ltp chondroplasty national secretary: Felipe Lemus Type of Anesthesia:: General Anesthesiologist: [...] arise next This note was generated with [employer] dictation software. It may contain incorrect words, spelling, and punctuation that were not noted in checking the note before signing. [id number] mins 07/30/18 1022 <Electronically signed by Angella Apple DO> Date Angella Apple DO CC: Angella pAple DO; Vishnu Owen MD Signed ORTHOPEDIC VISIT Observed: 07/29/2018 Status: F Source: [place] REPORT 3:54 PM [facility] REPOSITORY [facility] [address] [place] [address] OFFICE VISIT Date of Service: 07/28/18 MR#: [id number] Acct: [id number] Name: RAMÓN MONACO Rep #: [id number] : 1970 Provider: XU Lemus Age/Sex: 47/M Location: [facility] Status: Signed Intake Intake Visit Reasons: LEFT KNEE Is patient in pain?: Yes Allergies carbamazepine Allergy (Severe, Verified 07/28/18 13:48) Rash lithium [Rosemead] Allergy (Verified 07/28/18 13:48) Other metoclopramide HCl [...] 1554 <Electronically signed by Felipe MCNAIR> Date Fleipe MCNAIR Cosigner Signature: Date (if applicable) CC: DISCHARGE INSTRUCTION Observed: 07/23/2018 Status: F Source: [place] 3:46 PM [facility] REPOSITORY [facility] Medical Records Department [address] [place] [address] [place] [address] Instructions for Home/Discharge Instructions 07/23/18 1543 MR#: [id number] Acct: [id number] Name: RAMÓN MONACO Rep #: [id number] : 1970 47 From: Angella Apple DO PCP: Vishnu Owen MD Status: REG [facility] Discharge Diet: No Restrictions - nwb left [...] Allergy (Severe, Verified 07/15/18 08:58) Rash lithium [Rosemead] Allergy (Verified 07/15/18 08:58) Other metoclopramide HCl [...] mg PO DAILY 07/15/18 Hydrocodone Bitart/Apap 5-325 [Desha 5MG-325MG] 1 - 2 tablet PO Q6H PRN PRN 5 Days #40 tablet 07/23/18 The following prescriptions were given: Hydrocodone Bitart/Apap 5-325 [Desha 5MG-325MG] 1 - 2 tablet PO Q6H PRN PRN 5 Days #40 tablet PRN Reason: Pain Primary Care Physician: Vishnu Owen MD [Primary Care Provider] - Test Results: Test results from this visit will be discussed in further detail at your follow-up appointment, if applicable. Please Follow Up With: Angella Apple DO - [phone] 07/23/18 1546 <Electronically signed by Angella Apple DO> Date Angella Apple DO CC: Vishnu Owen MD PROTHROMBIN TIME W/INR Collected: 07/23/2018 Status: F Source: [place] 11:22 AM [facility] REPOSITORY Order Comment: Reason for Laboratory Test PREOP TYPE CODE TESTS RESULT OUT OF RANGE REFERENCE UNITS LAB L300.4150 11.7-14.9 SECONDS Normal PROTIME 13.0 LAB L300.4200 Normal INR 1.0 Performed By: #### L300.3900, L300.4310 #### [facility] [address] [place], [address] PARTIAL THROMBOPLAST Collected: 07/23/2018 Status: F Source: [place] TIME 11:22 AM [facility] REPOSITORY Order Comment: Reason for Laboratory Test PREOP TYPE CODE TESTS RESULT OUT OF RANGE REFERENCE UNITS LAB L300.4310 24.1-36.2 Seconds Normal PTT 24.1 Performed By: #### L300.3900, L300.4310 #### [facility] [address] [place], [address] CBC-COMPLETE BLOOD CNT Collected: 07/23/2018 Status: F Source: [place] NO DIFF 11:22 AM [facility] REPOSITORY Order Comment: Reason for Laboratory Test [...] MPV 9.8 Performed By: #### L100.0500 #### [facility] [address] [place], [address] BASIC METABOLIC Collected: 07/23/2018 Status: F Source: [place] PROFILE (BMP) 11:22 AM [facility] REPOSITORY Order Comment: Reason for Laboratory Test [...] 9 Performed By: #### L500.2500, L500.3400 #### [facility] [address] [place], [place], [id number] LIVER PROFILE Collected: 07/23/2018 Status: F Source: [place] 11:22 AM [facility] REPOSITORY Order Comment: Reason for Laboratory Test [...] 0.19 Performed By: #### L500.2500, L500.3400 #### [facility] [address] [place], [place], [address] KNEE 1 OR 2 VIEWS Observed: 07/23/2018 Status: F Source: [place] 1:52 AM [facility] REPOSITORY [facility] Imaging Services [address] [place] [address] Knee 1 or 2 Views MR#: [id number] Acct: [id number] Name: RAMÓN MONACO Rep #: [id number] : 1970 M 47 From: Vivian Camacho MD PCP: Vishnu Owen MD Status: [facility] Study: Knee 1 or 2 Views Date of Exam: 07/23/18 Exam# [id number] Ordering Dr: Angella Apple DO STUDY: X-RAY [...] CC: Angella Apple DO; Vishnu Owen MD Pilates Instructor: Signed ORTHOPEDIC VISIT Observed: 07/10/2018 Status: F Source: [place] REPORT 12:32 PM [facility] REPOSITORY [facility] Medicine [address] [place] [address] OFFICE VISIT Date of Service: 07/07/18 MR#: [id number] Acct: [id number] Name: RAMÓN MONACO Rep #: [id number] : 1970 Provider: XU Lemus Age/Sex: 47/M Location: [facility] Status: Signed Intake Intake Visit Reasons: LEFT KNEE Is patient in pain?: Yes Allergies carbamazepine Allergy (Severe, Verified 07/07/18 13:39) Rash lithium [Rosemead] Allergy (Verified 07/07/18 13:39) Other metoclopramide HCl [...] Status: F Source: [place] REPORT 5:11 PM [facility] REPOSITORY [facility] Medicine [address] [place] [address] 5 [place] [address] OFFICE VISIT Date of Service: 06/03/18 MR#: [id number] Acct: [id number] Name: RAMÓN MONACO Rep #: [id number] : 1970 Provider: Angella Apple DO Age/Sex: 47/M Location: [facility] Status: Signed Intake Intake Visit Reasons: LEFT KNEE Is patient in pain?: Yes Allergies carbamazepine Allergy (Severe, Verified 06/03/18 09:56) Rash lithium [Rosemead] Allergy (Verified 06/03/18 09:56) Other metoclopramide HCl [...] as well. This note was generated with [employer] dictation software. It may contain incorrect words, [...] ORTHOPEDIC VISIT Observed: 04/24/2018 Status: F Source: [place] REPORT 12:44 PM [facility] REPOSITORY 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 [place], [place], [address] LIPID PROFILE Collected: 04/21/2018 Status: F Source: [place] 1:33 PM [facility] REPOSITORY TYPE CODE TESTS RESULT OUT OF [...] 42 Performed By: #### L500.3400, L500.4100 #### [facility] [address] [place], [place], [address] ORTHOPEDIC VISIT Observed: 04/17/2018 Status: F Source: [place] REPORT 10:11 AM [facility] REPOSITORY 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 conservative care but may make [...] signed by Angella Apple DO> Date Angella Grantignacosta Signature: Date (if applicable) CC: LOWER EXT JOINT ONLY Observed: 03/31/2018 Status: F Source: [place] (ROUTINE) 7:24 AM [facility] REPOSITORY [facility] Imaging Services [address] [place] [address] Lower Ext Joint Only (Routine) MR#: [id number] Acct: [id number] Name: RAMÓN MONACO Rep #: [id number] : 1970 M 47 From: Tal Snider MD PCP: Vishnu Owen MD Status: REG CLI Study: Lower Ext Joint Only (Routine) Date of Exam: 03/31/18 Exam# [id number] Ordering Dr: Angella Apple DO STUDY: MRI [...] CC: Angella Apple DO; Vishnu Owen MD Pilates Instructor: Signed ORTHOPEDIC VISIT Observed: 03/11/2018 Status: F Source: [place] REPORT 3:02 PM [facility] REPOSITORY [facility] Orthopaedics AND Sports Medicine [address] [place] [address] OFFICE VISIT Date of Service: 03/11/18 MR#: [id number] Acct: [id number] Name: RAMÓN MONACO Rep #: [id number] : 1970 Provider: Angella Apple DO Age/Sex: 47/M Location: [facility] Status: Signed Intake Intake Visit Reasons: LEFT KNEE PAIN Is patient in pain?: Yes Pain scale (1-10): 7 Allergies carbamazepine Allergy (Severe, Verified 03/11/18 13:11) Rash lithium [[place]] Allergy (Verified 03/11/18 13:11) Other metoclopramide HCl [...] knee M94.262 03/11/18 1502 <Electronically signed by Angella Apple DO> Date Angella Apple DO Cosigner Signature: Date (if applicable) CC: ECHOCARDIOGRAM COMPLETE Observed: 02/10/2018 Status: F Source: [place] 3:28 PM [facility] REPOSITORY [facility] Cardiovascular Services [address] [place] [address] Echo Complete 01/24/18 1114 MR#: [id number] Acct: [id number] Name: RAMÓN MONACO Rep #: [id number] : 1970 47 From: Cj Castellanos MD Attending Dr: Cj Castellanos MD Status: REG CLI Ordering Dr: Cj Castellanos MD Date: 01/24/18 Location: [facility] Sex: M C Admitted: Reason For Study: [...] transthoracic echocardiogram report was delayed secondary to [facility] [employer] technical issues. A hand writtern preliminary report was previously made available for review. Ordering Physician: Cj Castellanos Referring Physician: Vishnu Owen MD Performed By: Macie Boston RDCS 02/08/18 1109 Date Cj Castellanos MD CC: Vishnu Owen MD; Cj Castellanos MD Date Dictated: 01/24/18 1114 Date Transcribed: 02/08/18 1109 Pilates Instructor: Signed STRESS REPORT Observed: 02/04/2018 Status: F Source: [place] 4:37 PM [facility] REPOSITORY [facility] Cardiovascular Services [address] [place] [address] MR#: [id number] Acct: [id number] Name: RAMÓN MONACO Rep #: [id number] : 1970 47 From: Cj Castellanos MD Primary Care: Vishnu Owen MD Status: REG CLI Ordering Dr: Rita: Karla Chery Stress Test Report Date: 02/04/2018 Procedure: Exercise [...] 58 %. This note was generated with HyprKey software. It may contain incorrect words, spelling, and punctuation that were not noted in checking the note before signing. 02/04/187 <Electronically signed by Cj Castellanos MD> Date Cj Castellanos MD CC: Vishnu Owen MD; Cj Castellanos MD Date Dictated: 02/04/181630 Date Transcribed: 02/04/181630 Pilates Instructor: PM Signed LIVER PROFILE Collected: 01/21/2018 Status: F Source: [place] 2:34 [facility] REPOSITORY TYPE CODE TESTS RESULT OUT OF [...] 0.12 Performed By: #### L500.3400, L500.4100 #### [facility] [address] [place], [address] LIPID PROFILE Collected: 01/21/2018 Status: F Source: [place] 2:34 PM [facility] REPOSITORY TYPE CODE TESTS RESULT OUT OF [...] 30 Performed By: #### L500.3400, L500.4100 #### [facility] [address] [place], [address] CARDIOLOGY VISIT Observed: 01/13/2018 Status: F Source: [place] REPORT 4:52 PM [facility] REPOSITORY [facility] [address] [place] [address] OFFICE VISIT Date of Service: 01/13/18 MR#: [id number] Acct: [id number] Name: RAMÓN MONACO Rep #: [id number] : 1970 Provider: Cj Castellanos MD Age/Sex: 47/M Location: [facility] Status: Signed HPI HPI Details: [...] Allergy (Severe, Verified 01/13/18 13:08) Rash lithium [[place]] Allergy (Verified 01/13/18 13:08) Other metoclopramide HCl [...] PO DAILY tab 01/13/18 [History Confirmed 01/13/18] [facility] Medical History Bicuspid aortic valve (Chronic) Nonrheumatic [...] F Source: [place] BY RICK 1:17 PM [facility] REPOSITORY [facility] [address] [place] [address] 12 Lead EKG performed by RICK 01/13/18 1316 MR#: [id number] Acct: [id number] Name: RAMÓN MONACO Rep #: [id number] : 1970 47 From: Cj Castellanos MD Attending Dr: Cj Castellanos MD Status: DEP AMB Ordering Dr: Cj Castellanos MD Date: 01/13/18 Location: [facility] Sex: M C Admitted: BMS/12 Lead EKG performed by [facility] ECG Report Interpretation Sinus Tachycardia Poor R wave progressionAnterior OK, age undetermined, cannot be excludedABNORMAL Electronically signed on 01/13/2018 at 15:40 by Cj Castellanos 01/13/18 1545 Date Cj Castellanos MD CC: Vishnu Owen MD Date Dictated: 01/13/18 1316 Date Transcribed: 01/13/18 131 Pilates Instructor: PM Signed ORTHOPEDIC VISIT Observed: 09/23/2017 Status: F Source: [place] REPORT 4:41 PM [facility] REPOSITORY [facility] Orthopaedics AND Sports Medicine [address] [place] [address] OFFICE VISIT Date of Service: 09/23/17 MR#: [id number] Acct: [id number] Name: RAMÓN MONACO Rep #: [id number] : 1970 Provider: Андрей Irving DO Age/Sex: 46/M Location: [facility] Status: Signed Intake Intake Visit Reasons: LEFT KNEE Is patient in pain?: Yes Allergies lithium [[place]] Allergy (Verified 09/23/17 09:17) Other metoclopramide HCl [...] Route Admin Location Lot Number Expiration DateNDC Cena 2 mg Intra-Articularleft knee [id number] 11/24/18 6560-9972-52 [facility] Assessment AND Plan Problems 1. Chronic pain [...] derangements of left knee M23.8X2 Additional Codes sander hand.knee (29344) 09/23/17 1641 <Electronically signed by Андрей Irving DO> Date Андрей Irving DO Cosigner Signature: Date (if applicable) CC: ALLERGIES ALLERGIES DATE TYPE / NAME / CODE REACTION SEVERITY SOURCE CODE 08/29/2018 Drug metoclopramide Other Unknown [place] Allergy/41 HCl/[id number](RXNOR Community [id number]([facility]) Repository 08/29/2018 Drug lithium/E396724317(R Other Unknown [place] Allergy/41 XNORM) Community 6960071([facility]) Repository 08/29/2018 Drug carbamazepine/X01093 Rash SV [place] Allergy/41 1634(RXNORM) [facility] [id number]([facility]) Repository 08/29/2018 Drug metoclopramide/F0060 ANXIETY SV [place] Allergy/41 78897(RXNORM) [facility] [id number]([facility]) Repository ENCOUNTERS ENCOUNTERS ADMIT/DISCHARGE ACCOUNT ADMITTING ENCOUNTER LOCATION SOURCE NUMBER CLASS 08/29/2018/ [id number] Ambulatory BMSBuilding:B [place] 9 7 [place] Repository 08/25/2018/ [id number] Ambulatory [place] 8 4 [facility] ing:PT Repository 08/25/2018 [id number] Ambulatory [place] 3 [facility] ing:MASS Repository 08/05/2018/ [id number] Ambulatory BMSBuilding:B [place] 8 2 [place] Repository 07/28/2018/ [id number] Ambulatory BMSBuilding:B [place] 8 7 [place] Repository 07/23/2018/ [id number] Ambulatory BMSBuilding:B [place] 8 9 MS.[facility] Repository 07/23/2018/ [id number] Ambulatory [place] 8 3 [facility] ing:SDCRoom: Repository AC09 07/07/2018/ [id number] Ambulatory BMSBuilding:B [place] 8 1 [place] Repository 06/10/2018 [id number] Ambulatory [place] [facility] Repository 06/03/2018/ [id number] Ambulatory BMSBuilding:B [place] 8 4 [facility] Repository 04/24/2018/ [id number] Ambulatory BMSBuilding:B [place] 8 0 [facility] Repository 04/21/2018 [id number] Ambulatory [place] 2 [facility] ing:MTLAB Repository 04/17/2018/ [id number] Ambulatory BMSBuilding:B [place] 8 8 [facility] Repository 03/31/2018 [id number] Ambulatory [place] 2 [facility]MRI Repository 03/11/2018/ [id number] Ambulatory BMSBuilding:B [place] 8 2 [facility] Repository 02/04/2018 [id number] Ambulatory [place] 1 [facility] ing:[facility] Repository 02/04/2018 [id number] Ambulatory BMSBuilding:W [place] 7 [facility] Repository 01/24/2018 [id number] Ambulatory [place] 6 [facility] ing:[facility] Repository 01/24/2018 [id number] Ambulatory BMSBuilding:W [place] 6 [facility] Repository 01/21/2018 [id number] Ambulatory [place] 2 [facility] ing:MTLAB Repository 01/13/2018/ [id number] Ambulatory BMSBuilding:B [place] 8 4 [facility] Repository 01/09/2018 [id number] Ambulatory BMSBuilding:B [place] 6 [facility] Repository 09/23/2017/ [id number] Ambulatory BMSBuilding:B [place] 8 8 [facility] Repository PAYERS PAYERS ENCOUNTER GUARANTOR PAYER SUBSCRIBER SOURCE 08/29/2018 RAMÓN [id number] [place] [facility] MOOREDOB: Community CENTER MEDICAREPolicy [id number] Number: Repository [address]Oxx: 330 [id number] (HP) Date:3314-65-73TB [address], [place] [address]RN: 08/29/2018 Secondary NOT GIVENUNK [place] Insurance:SELF PAY [facility] Number: Effective Repository Date:2018-08-28 08/25/2018 RAMÓN Mcwilliams Primary RAMÓN Diehl [id number] [place] Insurance:[facility] MOOREDOB: Community CENTER MEDICAREPolicy [id number] [place] Number: Repository [address]Ytn: (330) [id number] (HP) Date:3368-48-58WC [address] [facility] [place] [address]UM: 08/25/2018 Secondary NOT GIVENUNK [place] Insurance:SELF PAY [facility] Number: Effective Repository Date:2018-08-05 08/25/2018 RAMÓN A Primary NOT GIVENUNK [place] [id number] [place] Insurance:SELF PAY [place] Number: Effective Repository [address]Ieb: (330) Date:2018-03-17 () 08/05/2018 RAMÓN A Primary RAMÓN Mcwilliams [place] [id number] [place] Insurance:[employer] CARE MOOREDOB: Community CENTER MEDICAREPolicy [id number] [place] Number: Repository [address]Adi: (330) [id number] (HP) Date:0190-17-90JR [address] [facility] [place] [address]QU: 08/05/2018 Secondary NOT GIVENUNK [place] Insurance:SELF PAY [facility] Number: Effective Repository Date:2018-08-04 07/28/2018 RAMÓN A Primary RAMÓN Mcwilliams [place] [id number] [place] Insurance:[employer] C[employer] MOOREDOB: Community CENTER MEDICAREPolicy [id number] [place] Number: Repository [address]Kum: (330 [id number] (HP) Date:4788-98-19KX [address] [facility] [place] [address]TF: 07/28/2018 Secondary NOT GIVENUNK [place] Insurance:SELF PAY [facility] Number: Effective Repository Date:2018-07-28 07/23/2018 RAMÓN Mcwilliams Primary RAMÓN Diehl [id number] [place] Insurance:[employer] CARE COVENTRYDOB: Community CENTER MEDICAREPolicy [id number] [place] Number: Repository [address]Jxu: 330 [id number] 32 (HP) Date:6362-90-12HF [address] [place] [address]RO: 07/23/2018 Secondary NOT GIVENUNK [place] Insurance:SELF PAY [facility] Number: Effective Repository Date:2018-07-23 07/23/2018 RAMÓN Mcwilliams Primary RAMÓN Crainoster [id number] [place] Insurance:[facility] MEDICAREPolicy [id number] [place] Number: Repository [address]Kyh: (330 [id number] 12 () Date:8140-62-04LU [address] [place] [address]TQ: 07/23/2018 Secondary NOT GIVENUNK [place] Insurance:SELF PAY [facility] Number: Effective Repository Date:2018-07-02 07/07/2018 RAMÓN Mcwilliams Primary NOT GIVENUNK [place] [id number] [place] Insurance:SELF PAY [place] Number: Effective Repository [address]Dlw: (330) Date:2018-07-07 () 06/10/2018 RAMÓN Mcwilliams Primary RAMÓN Crainoster [id number] [place] Insurance[facility]: [facility]ENTER MEDICAREPolicy [id number] [place] Number: Repository [address]Nzu: (330 [id number] () Date:9476-04-38XE [address] [place] [address]YH: 06/10/2018 Secondary NOT GIVENUNK [place] Insurance:SELF PAY [facility] Number: Effective Repository Date:2018-05-14 06/03/2018 RAMÓN Mcwilliams Primary RAMÓN Diehl [id number] [place] Insurance:[employer] CARE MOOREDOB: Community CENTER MEDICAREPolicy [id number] [place] Number: Repository [address]Ftv: (330 [id number] [phone] () Date:5585-43-96QS [address] [place] [address]PG: 06/03/2018 Secondary NOT GIVENUNK [place] Insurance:SELF PAY [facility] Number: Effective Repository Date:2018-06-03 04/24/2018 RAMÓN Mcwilliams Primary RAMÓN [id number] [place] Insurance:[facility] [employer] MOOREDOB: Community CENTER MEDICAREPolicy [id number] [place] Number: Repository [address]Udx: (330 [id number] [phone] (HP) Date:8391-81-29FD [address] [place] [address]FT: 04/24/2018 Secondary NOT GIVENUNK [place] Insurance:SELF PAY [facility] Number: Effective Repository Date:2018-04-24 04/21/2018 RAMÓN Mcwilliams Primary RAMÓN Diehl [id number] [place] Insurance:[employer] CARE COVENTRYDOB: Community CENTER MEDICAREPolicy [id number] Number: Repository [address]Ioe: (330 [id number] [phone] (HP) Date:1324-85-55IT [address] [place] [address]PA: 04/21/2018 Secondary NOT GIVENUNK [place] Insurance:SELF PAY [facility] Number: Effective Repository Date:2018-04-21 04/17/2018 RAMÓN Mcwilliams Primary RAMÓN Diehl [id number] [place] Insurance:[facility] CARE MOOREDOB: Community CENTER MEDICAREPolicy [id number] Number: Repository [address]Izu: (330 [id number] [phone] (HP) Date:6330-48-48QW [address] [facility] [place], [place] [address]LC: 04/17/2018 Secondary NOT GIVENUNK [place] Insurance:SELF PAY [facility]: Effective Repository Date:2018-04-17 03/31/2018 RAMÓN Mcwilliams Primary RAMÓN Diehl [id number] [place] Insurance:[facility] C[employer] MOOREDOB: Community CENTER MEDICAREPolicy [id number] [place] Number: Repository [address]Vgj: 330 [id number] [phone] () Date:9518-83-93AU [address] [facility] [place] [address]AX: 03/31/2018 Secondary NOT GIVENUNK [place] Insurance:SELF PAY [facility] Effective Repository Date:2018-03-18 03/11/2018 RAMÓN Mcwilliams Primary RAMÓN Diehl [id number] [place] Insurance:[facility] C[employer] MOOREDOB: Community CENTER MEDICAREPolicy [id number] [place] Number: Repository [address]Jeq: 330 [id number] [phone] () Date:9643-87-38AT [address] [place] [address]YE: 03/11/2018 Secondary NOT GIVENUNK [place] Insurance:SELF PAY [facility] Number: Effective Repository Date:2018-03-11 02/04/2018 RAMÓN Mcwilliams Primary RAMÓN Crainoster [id number] [place] Insurance:[facility] CARE MOOREDOB: Community CENTER MEDICAREPolicy [id number] [place] Number: Repository [address]Dki: 330 [id number] [phone] () Date:2623-31-11MB [address] [facility] [address]BU: 02/04/2018 Secondary NOT GIVENUNK [place] Insurance:SELF PAY [facility] Number: Effective Repository Date:2018-02-04 02/04/2018 RAMÓN Mcwilliams Primary RAMÓN Crainoster [id number] [place] Insurance:[facility] CARE MOOREDOB: Community CENTER MEDICAREPolicy [id number] [place] Number: Repository [address]Pyj: 330 [id number] [phone] (HP) Date:5814-09-99CW [address] [facility] [place], [place] [address]ZL: 02/04/2018 Secondary NOT GIVENUNK [place] Insurance:SELF PAY [facility] Number: Effective Repository Date:2018-02-04 01/24/2018 RAMÓN Mcwilliams Primary RAMÓN Mcwilliams [place] [id number] [place] Insurance:[facility]: [facility]ENTER MEDICAREPolicy [id number] Number: Repository [address]Yjs: (330 [id number] [phone] (HP) Date:8050-31-91PG [address] [place] [address]CU: 01/24/2018 Secondary NOT GIVENUNK [place] Insurance:SELF PAY [facility] Number: Effective Repository Date:2018-01-13 01/24/2018 RAMÓN Mcwilliams Primary RAMÓN Mcwilliams [place] [id number] [place] Insurance:[facility]B: [facility] CENTER MEDICAREPolicy [id number] [place] Number: Repository [address]Ixs: (330 [id number] [phone] (HP) Date:3404-92-45LO [address] [place] [address]MZ: 01/24/2018 Secondary NOT GIVENUNK [place] Insurance:SELF PAY [facility] Number: Effective Repository Date:2018-01-24 01/21/2018 RAMÓN Mcwilliams Primary RAMÓN Mcwilliams [place] [id number] [place] Insurance:[facility]B: [facility]ENTER MEDICAREPolicy [id number] [place] Number: Repository [address]Tam: 330 [id number] [phone] (HP) Date:5272-03-83DN [address] [place] [address]QB: 01/21/2018 Secondary NOT GIVENUNK [place] Insurance:SELF PAY [facility] Number: Effective Repository Date:2018-01-21 01/13/2018 RAMÓN Mcwilliams Primary RAMÓN [id number] [place] Insurance:[employer] CARE MOOREDOB: Community CENTER MEDICAREPolicy [id number] Number: Repository [address]Fqv: 330 [id number] [phone] () Date:3763-83-92AA [address] [place] [address]NJ: 01/13/2018 Secondary NOT GIVENUNK [place] Insurance:SELF PAY [facility] Number: Effective Repository Date:2017-08-15 01/09/2018 RAMÓN Mcwilliams Primary RAMÓN [id number] [place] Insurance:[facility] CARE MOOREDOB: Community CENTER MEDICAREPolicy [id number] [place] Number: Repository [address]Qro: 330 [id number] [phone] () Date:6126-04-01BF [address] [place] [address]68[address]YS: 01/09/2018 Secondary NOT GIVENUNK [place] Insurance:SELF PAY [facility] Number: Effective Repository Date:2018-01-09 09/23/2017 RAMÓN Mcwilliams Primary RAMÓN Diehl [id number] [place] Insurance:[facility] CARE MOOREDOB: Community CENTER MEDICAREPolicy [id number] [place] Number: Repository [address]Gyd: (330 [id number] [phone] () Date:2802-13-60YN [address] [place] [address] 39[address]QD: 09/23/2017 Secondary NOT GIVENUNK [place] Insurance:SELF PAY [facility] Number: Effective Repository Date:2017-09-19
== END 2018-08-25 13:02 | disposition home or self-care (01) ==
LOC: PT 11:30
PROVIDERS: Family Provider Family Medicine; PCP Family Medicine; Referring Provider Orthopaedic Surgery; Visit Provider Orthopaedic Surgery
DX: Z98.890 Other specified postprocedural states (principal)
CPT/HCPCS: 97110; 97161; 97164

== ENCOUNTER → 2018-10-06 15:38 | Outpatient (CLI) | payer MEDICARE, SELFPAY ==
[2018-08-29 13:08] VITALS: BMI 27.1
--- NOTE | 2018-10-06 15:50 | RAD_ITS ---
STUDY: X-RAY - LEFT HAND REASON FOR EXAM: Male, 47 years old. Polyarthritis. Pain TECHNIQUE: 3 view(s) of the hand. COMPARISON: None. FINDINGS: Normal radiocarpal articulation. Normal distal radioulnar joint. Normal visualized carpal bones. Normal carpal articulations Normal carpometacarpal articulation of the thumb. Normal second through fifth carpometacarpal joints. Normal metacarpi. Normal metacarpophalangeal joint of the thumb. Normal interphalangeal joint of the thumb. Normal proximal and distal phalanges of the thumb. Normal metacarpophalangeal joints of the second through fifth fingers. There is diffuse articular joint space narrowing of the proximal and distal interphalangeal joints of the second through fifth fingers, but without erosive changes or periarticular soft tissue swelling. Normal phalanges of the second through fifth fingers. The soft tissue structures are unremarkable. RAD/Hand Min 3 Views IMPRESSION: No acute abnormality. No evidence for inflammatory arthropathy. Nrcg-ss-jmrrcxci degenerative changes of the interphalangeal joints. Electronically Signed: Micky Malone MD at 16:41 EST , Service support ,
--- NOTE | 2018-10-06 15:50 | RAD_ITS ---
STUDY: X-RAY - RIGHT HAND REASON FOR EXAM: Male, 47 years old. Polyarthritis. Pain TECHNIQUE: 3 view(s) of the hand. COMPARISON: None. FINDINGS: Normal radiocarpal articulation. Normal distal radioulnar joint. Normal visualized carpal bones. Normal carpal articulations Normal carpometacarpal articulation of the thumb. Normal second through fifth carpometacarpal joints. Normal metacarpi. Normal metacarpophalangeal joint of the thumb. Normal interphalangeal joint of the thumb. Normal proximal and distal phalanges of the thumb. Normal metacarpophalangeal joints of the second through fifth fingers. There is diffuse articular joint space narrowing of the proximal and distal interphalangeal joints of the second through fifth fingers, but without erosive changes or periarticular soft tissue swelling. Normal phalanges of the second through fifth fingers. The soft tissue structures are unremarkable. RAD/Hand Min 3 Views IMPRESSION: No acute abnormality. No evidence for inflammatory arthropathy. [id number] degenerative changes of the interphalangeal joints. Electronically Signed: Micky Malone MD at 16:43 EST , Service support ,
[2018-10-06 17:42] LABS: Absolute Lymphocyte Count 2.13 X10^3/ul (0.83-4.51); Absolute Neutrophil Count 4.7 X10^3/uL (2.0-7.7); Basophil# 0.04 X10^3/uL; Basophil% 0.5 % (0-1); Eosinophil# 0.12 X10^3/uL; Eosinophils% 1.6 % (0-5); Hematocrit 39.6 % (40-54); Hemoglobin 13.1 g/dl (13.0-16.5); Lymphocyte # 2.13 X10^3/ul (4.0); Lymphocyte % 28.3 % (19-41); Mean Corp Hgb Conc 33.1 g/gl (32-36); Mean Corpuscular Hgb 31.1 pg (27.0-32.0); Mean Corpuscular Volume 94.1 fL (80-94); Mean Platelet Vol. 10.5 fl (6.2-12.0); Monocyte# 0.46 X10^3/uL; Monocyte% 6.1 % (0-10); Neutrophil # 4.73 X10^3/uL (2.7-7.7); Neutrophil % 62.8 % (47-70); Platelet Count 325 K/mm3 (150-450); RBC Distribution Width CV 13.3 % (11.6-14.6); RBC Distribution Width SD 44.3 fl (35.1-43.9); Red Blood Count 4.21 M/mm3 (4.6-6.2); White Blood Count 7.5 K/mm3 (4.4-11.0)
[2018-10-06 17:43] LABS: POSITIVE COUNT NO; POSITIVE DIFFERENTIAL NO; POSITIVE MORPHOLOGY NO
[2018-10-06 17:50] LABS: Erythrocyte Sedimentation Rate 10 mm/hr (0-15)
[2018-10-06 18:11] LABS: ALB/GLOB Ratio 1.1 RATIO (0.9-2.4); AST(SGOT) 27 U/L (15-37); Alanine Aminotransfer ALT/SGPT 37 U/L (16-61); Alkaline Phosphatase 45 U/L (45-117); Anion Gap 10 (5-15); BUN 18 mg/dL (7-18); BUN/Creat Ratio 16.8 RATIO (10-20); CRP < 2.90 mg/L (0.0-3.0); Calcium,Total 9.2 mg/dL (8.5-10.1); Chloride 109 mmol/L (98-107); Creatinine, Serum 1.07 mg/dL (0.70-1.30); EST Glomerular Filtration Rate 78 mL/min (>60); Est Glom Filt Rate - Afr Amer 95 mL/min (>60); Globulin 3.6 g/dL (2.2-4.2); Glucose 88 mg/dL (74-106); Potassium 3.8 mmol/L (3.5-5.1); Protein, Total 7.6 g/dL (6.4-8.2); Rheumatoid Factor < 10.0 IU/mL (<15); Sodium Level 142 mmol/L (136-145); Thyroid Stim Hormone (TSH) 1.06 uIU/mL (0.358-3.74); Uric Acid 5.8 mg/dL (3.5-7.2)
[2018-10-08 14:07] LABS: Anti-Centromere B Ab <0.2 AI (0.0-0.9); Anti-Chromatin <0.2 AI (0.0-0.9); Anti-Jo <0.2 AI (0.0-0.9); Anti-Scleroderma-70 AB <0.2 AI (0.0-0.9); RNP Ab <0.2 AI (0.0-0.9); SJOGREN'S Anti-SS-A test < 0.2 AI (0.0-0.9); SJOGREN'S Anti-SS-B test < 0.2 AI (0.0-0.9); Smith Ab <0.2 AI (0.0-0.9)
[2018-10-10 22:43] LABS: CCP IgG Antibodies 7 units (0-19)
[2018-10-10 22:44] LABS: Anti-dsDNA Ab <1 IU/mL (0-9)
== END ==
PROVIDERS: Family Provider Family Medicine; PCP Family Medicine; Referring Provider Family Medicine; Visit Provider Family Medicine
DX: M13.0 Polyarthritis, unspecified (principal)
CPT/HCPCS: 36415; 73130; 80053; 84443; 84550; 85025; 85652; 86140; 86200; 86225; 86235; 86431

== ENCOUNTER → 2019-04-23 08:33 | Outpatient (CLI) | payer MEDICARE, SELFPAY ==
[2019-04-23 08:26] VITALS: BMI 27.1
--- NOTE | 2019-04-23 08:34 | RAD_ITS ---
STUDY: X-RAY - LEFT KNEE REASON FOR EXAM: Previous repair, follow-up. TECHNIQUE: 4 view(s) of the knee. COMPARISON: Radiographs 05/06/2017. FINDINGS: Normal visualized distal femur. Status post subchondroplasty of the medial tibial plateau. Normal proximal tibiofibular articulation. There is severe joint space narrowing of the medial femorotibial compartment, increased since the prior study. Normal lateral femorotibial compartment. Normal patellofemoral articulation. The soft tissue structures are unremarkable. RAD/Knee 4 or More Views IMPRESSION: Severe joint space narrowing of the medial femorotibial compartment. Status post subchondroplasty of the medial tibial plateau. Electronically Signed: Tal Snider MD at 9:19 EDT Tel , Service support ,
== END ==
PROVIDERS: Family Provider Family Medicine; PCP Family Medicine; Referring Provider Orthopaedic Surgery; Visit Provider Orthopaedic Surgery
DX: M25.562 Pain in left knee (principal)
CPT/HCPCS: 73564

== ENCOUNTER → 2022-10-02 | Outpatient (CLI) | payer MEDICARE, SELFPAY ==
[2022-10-02 18:03] LABS: Absolute Lymphocyte Count 3.23 X10^3/uL (0.83-4.51); Absolute Neutrophil Count 4.9 X10^3/uL (2.0-7.7); Basophil# 0.08 X10^3/uL; Basophil% 0.9 % (0-1); Eosinophil# 0.16 X10^3/uL; Eosinophils% 1.7 % (0-5); Hematocrit 38.3 % (40-54); Hemoglobin 12.9 g/dL (13.0-16.5); Lymphocyte # 3.23 X10^3/ul (0.83-4.51); Lymphocyte % 35.2 % (19-41); Mean Corp Hgb Conc 33.7 g/dL (32-36); Mean Corpuscular Hgb 30.8 pg (27.0-32.0); Mean Corpuscular Volume 91.4 fL (80-94); Mean Platelet Vol. 10.2 fl (6.2-12.0); Monocyte# 0.76 X10^3/uL; Monocyte% 8.3 % (0-10); NRBC Flagged by Analyzer 0 % (0-5); Neutrophil # 4.86 X10^3/uL (2.7-7.7); Neutrophil % 52.9 % (47-70); Platelet Count 325 K/mm3 (150-450); RBC Distribution Width CV 12.8 % (11.6-14.6); RBC Distribution Width SD 42.2 fl (35.1-43.9); Red Blood Count 4.19 M/mm3 (4.6-6.2); White Blood Count 9.2 K/mm3 (4.4-11.0)
[2022-10-02 18:42] LABS: AST(SGOT) 28 U/L (15-37); Alanine Aminotransfer ALT/SGPT 38 U/L (16-61); Albumin, Serum 3.9 g/dL (3.2-5.0); Alkaline Phosphatase 55 U/L (45-117); Anion Gap 9 (5-15); BUN 20 mg/dL (7-18); BUN/Creat Ratio 19.8 RATIO (10-20); Calcium,Total 9.2 mg/dL (8.5-10.1); Chloride 103 mmol/L (98-107); Cholesterol 175 mg/dL (200); Creatinine, Serum 1.01 mg/dL (0.70-1.30); EST Glomerular Filtration Rate 83 mL/min (>60); Est Glom Filt Rate - Afr Amer 100 mL/min (>60); Globulin 3.9 g/dL (2.2-4.2); Glucose 94 mg/dL (74-106); High Density Lipoprotein 53 mg/dL; Potassium 3.6 mmol/L (3.5-5.1); Protein, Total 7.8 g/dL (6.4-8.2); Sodium Level 136 mmol/L (136-145); Triglycerides 314 mg/dL; Very Low Density Lipoprotein 63 mg/dL (5-40)
[2022-10-04 10:17] LABS: Ferritin 132 ng/mL (26-388)
== END | disposition home or self-care (01) ==
LOC: MTLAB 14:44
PROVIDERS: PCP Family Medicine; Referring Provider Family Medicine; Visit Provider Family Medicine
DX: E78.00 Pure hypercholesterolemia, unspecified (principal); E55.9 Vitamin D deficiency, unspecified; D64.9 Anemia, unspecified
CPT/HCPCS: 36415; 80053; 80061; 82306; 82728; 85025

== ENCOUNTER 2022-12-27 13:54 | Outpatient (RCR) | payer MEDICARE, SELFPAY ==
--- NOTE | 2022-12-31 11:54 | HP.PTEVAL ---
Patient's Visit Information RAMÓN MONACO is a 52 year old M referred to Physical Therapy by Dr. Mateusz Ring DO with a diagnosis of L knee OA. Date of Evaluation: 12/27/22 Physical Therapist: Sotero Vaca DPT - Visit Plan Frequency: 1x/Week Duration: 6 Weeks Plan: Pt. is eager to get back to running, he has not run in a while. I talked to him about strengthening and easing back into activities like elliptical and possibly a walk to jog like program. He consents to this. I talked to him that there is no guarantee that he can run again, but he is eager to get back to doing this. He will need to start very slowly and progress as tolerated. I did even talk to him about running in water to increase tolerance. We will start with gym exercises with focus on strengthening in pain free ranges. Progress as tolerated. - Subjective Pt. is here today for his initial evaluation with diagnosis of L knee OA. Pt. reports having some issues for a few years. He did have an arthroscopic surgery on his L knee a few years ago. He reports not being as active due to his L knee pain. Pt. recently saw his ortho who gave him options of surgery, PT, and or injections. Pt. chose to do more conservative route. 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 Pt. reports doing okay with his daily activities, but would like to get back into running. - Pain L knee Pain Intensity (Out of 10): 1 Pain Intensity Range: 0, 5 - Objective POSTURE: Pt. has marked L knee varus positioning. Nomal wt. shifting noted between BLEs. PALPATION: Pt. has no pain with palpation. NO medial joint line pain noted. NEURO: normal throughout. Pt. is able to rise on heels and toes without issues. ROM: L Knee: 0-0-124deg. pt. has slight tightness in L HS, but other than that he is good. MMT: RLE 5/5 throughout. LLE: ankle 5/5 throughout; knee: ext 5-/5, flexion 5-/5 mild increase NW with both; hip: flexion 5/5, abd 5-/5, ext 5-/5. GAIT: Pt. has fairly normal gait pattern, except for marked L knee varus during stance phase. STAIRS: Pt. able to complete with fairly good tolerance. Mild soreness with decending. - Balance/Special Test Scores Lower Extremity Functional Score: 57 - Goals Goal 1:: LTG: Pt. to be I with HEP. Goal Time Frame: 4-6 Weeks Goal 2:: STG: Pt. to have no pain with daily activities including stairs and prolonged walking. Goal Time Frame: 2-4 Weeks Goal 3:: LTG: pt. to have increased LLE strength to 5/5 throughout. Goal Time Frame: 4-6 Weeks Goal 4:: LTG: Pt. to start a walk to jog program with out increase in L knee pain. Goal Time Frame: 4-6 Weeks - Rehabilitation Potential Physical Therapy Diagnosis: Pt. has marked L knee varus positioning with L knee OA. Pt. has some weakness, but motion is pretty good. Pt. would benefit from PT to increase his strength of his LLE including quads and glute medius. Rehabilitation Potential: Fair - Anticipated Interventions Patient/Client Instruction: Educate patient on: Condition, Plan of Care, Risk Factors, Benefits of Fitness Program For the Purpose of:: To improve decision making, To facilitate caregiver knowledge, To improve self management, To prevent re-injury, To improve ability to perform tasks related to life management, To improve tolerance to ADL's Therapeutic Exercise to Include: Strength training, Power training, Endurance training, Balance training, Postural training, Flexibilty training, Gait and locomotor training For the Purpose of:: To decrease pain, To increase ROM, To improve nutrient delivery to tissue, To increase oxygenation perfusion, To improve muscle performance and motor function, To improve gait and locomotor functions, To improve health of tissue, To decrease soft tissue restriction, To increase flexibility/ROM, To improve balance Thank you for the opportunity to evaluate your patient. For Medicare and Medicare HMO plans, please review the plan of care and approve it. It will need to be FAXED BACK to us at [phone] for Medicare purposes. For Medicare only, by signing this I certify the plan of care. Please let me know if there are questions or concerns regarding this plan of care. Physician Signature: Date:
== END 2022-12-27 19:00 | disposition home or self-care (01) ==
LOC: PT 13:54
PROVIDERS: PCP Family Medicine; Referring Provider Orthopaedic Surgery; Visit Provider Orthopaedic Surgery
DX: M17.12 Unilateral primary osteoarthritis, left knee (principal)
CPT/HCPCS: 97161

== ENCOUNTER → 2024-02-17 | Outpatient (CLI) | payer MEDICARE, SELFPAY ==
[2024-02-17 12:22] LABS: Absolute Lymphocyte Count 2.31 X10^3/uL (0.83-4.51); Absolute Neutrophil Count 3.7 X10^3/uL (2.0-7.7); Basophil# 0.07 X10^3/uL; Eosinophil# 0.23 X10^3/uL; Eosinophils% 3.3 % (0-5); Hematocrit 37.4 % (40-54); Hemoglobin 12.4 g/dL (13.0-16.5); Lymphocyte # 2.31 X10^3/ul (0.83-4.51); Lymphocyte % 33.4 % (19-41); Mean Corp Hgb Conc 33.2 g/dL (32-36); Mean Corpuscular Hgb 29.9 pg (27.0-32.0); Mean Corpuscular Volume 90.1 fL (80-94); Mean Platelet Vol. 9.7 fl (6.2-12.0); Monocyte# 0.56 X10^3/uL; Monocyte% 8.1 % (0-10); NRBC Flagged by Analyzer 0 % (0-5); Neutrophil # 3.68 X10^3/uL (2.7-7.7); Neutrophil % 53.2 % (47-70); Platelet Count 314 K/mm3 (150-450); RBC Distribution Width CV 13.3 % (11.6-14.6); RBC Distribution Width SD 43.5 fl (35.1-43.9); Red Blood Count 4.15 M/mm3 (4.6-6.2); White Blood Count 6.9 K/mm3 (4.4-11.0)
[2024-02-17 13:07] LABS: AST(SGOT) 29 U/L (15-37); Alanine Aminotransfer ALT/SGPT 38 U/L (16-61); Albumin, Serum 3.6 g/dL (3.2-5.0); Alkaline Phosphatase 50 U/L (45-117); Anion Gap 8 (5-15); BUN 11 mg/dL (7-18); BUN/Creat Ratio 10.8 RATIO (10-20); Calcium,Total 8.9 mg/dL (8.5-10.1); Chloride 108 mmol/L (98-107); Cholesterol 166 mg/dL (200); Creatinine, Serum 1.02 mg/dL (0.70-1.30); EST Glomerular Filtration Rate 81 mL/min (>60); Est Glom Filt Rate - Afr Amer 98 mL/min (>60); Globulin 3.6 g/dL (2.2-4.2); Glucose 103 mg/dL (74-106); High Density Lipoprotein 55 mg/dL; Potassium 3.5 mmol/L (3.5-5.1); Protein, Total 7.2 g/dL (6.4-8.2); Sodium Level 141 mmol/L (136-145); Thyroid Stim Hormone (TSH) 1.54 uIU/mL (0.358-3.74); Triglycerides 156 mg/dL; Very Low Density Lipoprotein 31 mg/dL (5-40)
== END | disposition home or self-care (01) ==
LOC: MTLAB 10:24
PROVIDERS: PCP Family Medicine; Referring Provider Family Medicine; Visit Provider Family Medicine
DX: L65.9 Nonscarring hair loss, unspecified (principal); E78.5 Hyperlipidemia, unspecified
CPT/HCPCS: 36415; 80053; 80061; 84402; 84403; 84443; 85025

== ENCOUNTER → 2024-06-05 | Outpatient (CLI) | payer MEDICARE, SELFPAY ==
[2024-06-14 16:08] LABS: Sex Hormone-binding Globulin 30.8 nmol/L (19.3-76.4); Testosterone, % Free 1.93 % (1.50-4.20); Testosterone, Free 5.11 ng/dL (5.00-21.00); Testosterone, Total 265 ng/dL (264-916)
== END | disposition home or self-care (01) ==
LOC: MTLAB 09:56
PROVIDERS: PCP Family Medicine; Referring Provider Family Medicine; Visit Provider Family Medicine
DX: L65.9 Nonscarring hair loss, unspecified (principal)
CPT/HCPCS: 36415; 82627; 84270; 84402; 84403; 84443; 82626

== ENCOUNTER → 2024-07-01 | Outpatient (CLI) | payer MEDICARE, SELFPAY ==
[2024-07-10 15:09] LABS: Testosterone, % Free 4.27 % (1.50-4.20); Testosterone, Free 8.41 ng/dL (5.00-21.00); Testosterone, Total 197 ng/dL (264-916)
== END | disposition home or self-care (01) ==
LOC: MTLAB 09:57
PROVIDERS: PCP Family Medicine; Referring Provider Family Medicine; Visit Provider Family Medicine
DX: L65.9 Nonscarring hair loss, unspecified (principal)
CPT/HCPCS: 36415; 84402; 84403